=== PATIENT | male | born 1955 | race Caucasian/White ===

== ENCOUNTER → 2016-05-20 | Outpatient (CLI) | payer MEDICARE ==
--- NOTE | 2016-05-20 10:33 | REP ---
CHEST X-RAY: Two views. HISTORY: Polymyalgia rheumatica. Comparison study December 15, 2014. FINDINGS: The lungs are hyperinflated but clear. Pleural angles are sharp. Heart is not enlarged. There is some biapical pleuroparenchymal fibrotic change unchanged from the prior study. There are old healed rib fractures on the right. No other significant bony abnormality is seen. Pulmonary vasculature is not increased. IMPRESSION: No active disease. Signed by Curtis Barfield MD 05/20/2016 10:41 A
== END | disposition home or self-care (01) ==
LOC: M RAD 09:03
PROVIDERS: ATTEND Family Medicine
DX: J18.9 Pneumonia, unspecified organism (principal); R06.2 Wheezing

== ENCOUNTER 2016-05-21 08:45 | Emergency (ER) | payer MEDICARE ==
[2016-05-21] MEDS ORDERED: GLUCAGON FOR INJ 1 MG VIAL (J1610) As Ordered ONE (09:07)
[2016-05-21] MEDS ORDERED: GI COCKTAIL 50ML BTL(HYOSCYAMINE/MAALOX/LIDOCAINE VISCOUS)(1:3:1) As Ordered ONE (09:48)
[2016-05-21 11:16] LABS: BASO % 0.3 % (0.0-1.0); EOS # 0.1 K/mm3 (0.0-0.50); EOS % 0.5 % (0.0-3.0); LARGE UNSTAINED CELL # 0.1 K/mm3 (0.0-0.4); LARGE UNSTAINED CELL % 0.9 % (0.0-4.0); LYMPH # 1.5 K/mm3 (1.5-4.5); LYMPH % 10.4 % (24.0-44.0); MEAN CORPUSCULAR HEMOGLOBIN 34.3 pg (27.0-33.0); MEAN CORPUSCULAR HGB CONC 33.7 g/dl (32.0-36.5); MEAN CORPUSCULAR VOLUME 101.9 fl (80.0-96.0); MONO # 0.5 K/mm3 (0.0-0.8); MONO % 3.8 % (0.0-5.0); NEUTROPHILS # 11.8 K/mm3 (1.8-7.7); NEUTROPHILS % 84.2 % (36.0-66.0); PLATELET COUNT, AUTOMATED 298 k/mm3 (150-450); RED CELL DISTRIBUTION WIDTH 12.4 % (11.5-14.5)
[2016-05-21 11:26] LABS: ANION GAP 9 MEQ/L (8-16); BLOOD UREA NITROGEN 16 MG/DL (7-18); CALCIUM LEVEL 8.5 MG/DL (8.5-10.1); CARBON DIOXIDE LEVEL 27 MEQ/L (21-32); CHLORIDE LEVEL 110 MEQ/L (98-107); CREATININE FOR GFR 0.92 MG/DL (0.70-1.30); GLOMERULAR FILTRATION RATE > 60.0 (>56); GLUCOSE, FASTING 100 MG/DL (70-105); POTASSIUM SERUM 4.1 MEQ/L (3.5-5.1); SODIUM LEVEL 146 MEQ/L (136-145)
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
== END 2016-05-21 13:28 | disposition short-term general hospital (02) ==
LOC: M ED 08:45
DX: T18.128A Food in esophagus causing other injury, initial encounter (principal); X58.XXXA Exposure to other specified factors, initial encounter; Y92.89 Other specified places as the place of occurrence of the external cause; Y93.89 Activity, other specified; Y99.8 Other external cause status; J44.9 Chronic obstructive pulmonary disease, unspecified; F17.210 Nicotine dependence, cigarettes, uncomplicated; Z79.899 Other long term (current) drug therapy; Z79.51 Long term (current) use of inhaled steroids
CPT/HCPCS: 36415; 80048; 85025; 96361; 96374; 99285; J1610

== ENCOUNTER 2020-01-02 21:20 | Emergency (ER) | payer MEDICARE ==
[~2020-01-02] VITALS: Ht 177.8 cm; Wt 61.2 kg
[2020-01-02] MEDS ORDERED: IPRATROPIUM 0.5MG/ALBUTEROL 2.5MG INH SOL UD 3ML (DUONEB) NEB ONE (21:45)
[2020-01-02] MEDS ORDERED: KETOROLAC 30 MG/ML 1ML VIAL IV ONE (21:45)
[2020-01-02 21:47] LABS: BASO # 0.1 10^3/uL (0.0-0.2); BASO % 0.6 % (0.0-1.0); EOS # 0.1 10^3/uL (0.0-0.5); EOS % 0.9 % (0.0-3.0); HEMATOCRIT 43.7 % (42.0-52.0); HEMOGLOBIN 15.2 g/dl (13.5-17.5); LYMPH # 2.3 10^3/uL (1.5-5.0); LYMPH % 19.3 % (24.0-44.0); MEAN CORPUSCULAR HEMOGLOBIN 34.2 pg (27.0-33.0); MEAN CORPUSCULAR HGB CONC 34.8 g/dl (32.0-36.5); MEAN CORPUSCULAR VOLUME 98.4 fl (80.0-96.0); MONO # 0.9 10^3/uL (0.0-0.8); MONO % 7.2 % (0.0-5.0); NEUTROPHILS # 8.6 10^3/uL (1.5-8.5); NEUTROPHILS % 71.6 % (36.0-66.0); PLATELET COUNT, AUTOMATED 327 10^3/uL (150-450); RED BLOOD COUNT 4.44 10^6/uL (4.30-6.10)
[2020-01-02 21:57] LABS: INR 0.91; PROTHROMBIN TIME 12.4 SECONDS (11.8-14.0)
[2020-01-02 21:58] LABS: PARTIAL THROMBOPLASTIN TIME 29.9 SECONDS (25.0-38.4)
[2020-01-02 22:15] LABS: BLOOD UREA NITROGEN 11 MG/DL (7-18); CALCIUM LEVEL 8.6 MG/DL (8.8-10.2); CARBON DIOXIDE LEVEL 26 MEQ/L (21-32); CHLORIDE LEVEL 103 MEQ/L (98-107); CK-MB VALUE MASS < 1.0 NG/ML (<3.6); CPK CREATINE PHOSPHOKINASE 66 U/L (39-308); CREATININE FOR GFR 0.85 MG/DL (0.70-1.30); GLOMERULAR FILTRATION RATE > 60.0 (>49); GLUCOSE, FASTING 94 MG/DL (70-100); MB/CK RELATIVE INDEX 1.52 (< OR =4); POTASSIUM SERUM 3.8 MEQ/L (3.5-5.1); SODIUM LEVEL 136 MEQ/L (136-145); TROPONIN I < 0.02 NG/ML (< 0.10)
--- NOTE | 2020-01-02 22:44 | REPVR ---
PROCEDURE INFORMATION: Exam: XR Chest, 2 Views Exam date and time: 01/02/2020 9:54 PM Age: 64 years old Clinical indication: Other: Cough, left sided chest pain TECHNIQUE: Imaging protocol: XR of the chest Views: 2 views. COMPARISON: CR Chest, 2 view PA, Lat 05/20/2016 9:11 AM FINDINGS: Lungs: 5 cm wedge-shaped area of increased density at the right infrahilar portion of the lung and based on the lateral view possibly involving both the right middle lobe and lower lobe. This is consistent with atelectasis and pneumonia. Follow-up studies would be very important to see that this clears to exclude any possibility of underlying mass lesion or obstructing lesion. There is some prominence of the right hilum which could be secondary to enlarged lymph nodes. There is a 3 cm density in the right infrahilar region that could represent a enlarged lymph node or a oval mass lesion. A CT scan with IV contrast would be very important to evaluate this area. Pleural space: There is no evidence of pneumothorax or pleural effusion. Heart/Mediastinum: The heart is normal in size. There is increased density to the right of the lower trachea/upper mediastinum. This could be the result of enlarged lymph nodes and I would recommend correlation with CT scan for further evaluation. Bones/joints: Old healed rib fracture right 7th rib. IMPRESSION: 1. Soft tissue prominence along the right side of the lower trachea may be the result of enlarged lymph nodes and recommend CT scan for further evaluation of this. This represents a change since 2017. 2. 5 cm wedge-shaped area of increased density right infrahilar region involving the right middle lobe and right lower lobe consistent with an extensive area of pneumonic infiltrate. Follow-up studies would be important to see that this clears and to exclude any possibility of underlying nodule or obstructing lesion. 3. Prominence of the right hilum could be the result of enlarged lymph nodes and evaluation with CT with IV contrast would be helpful. 4. There is a 3 cm density in the right infrahilar region which could represent an enlarged lymph node or a mass lesion. A CT scan with IV contrast would be very helpful to evaluate this area for the possibility of a mass lesion. Electronically signed by: Darryl Bernard On 01/02/2020 22:44:11 PM
[2020-01-02] MEDS ORDERED: ISOVUE-370 76% 100ML VIAL As Ordered ONE (22:59)
--- NOTE | 2020-01-02 23:59 | REPVR ---
PROCEDURE INFORMATION: Exam: CT Angiography Chest With Contrast Exam date and time: 01/02/2020 10:53 PM Age: 64 years old Clinical indication: Left-sided chest pain; Additional info: Left sided pleuritic chest pain, enlarged lymph nodes on cxr TECHNIQUE: Imaging protocol: Computed tomographic angiography of the chest with intravenous contrast. 3D rendering (Not supervised by radiologist): MIP and/or 3D reconstructed images were created by the technologist. Radiation optimization: All CT scans at this facility use at least one of these dose optimization techniques: automated exposure control; mA and/or kV adjustment per patient size (includes targeted exams where dose is matched to clinical indication); or iterative reconstruction. Contrast material: ISO; Contrast volume: 75 ml; Contrast route: INTRAVENOUS (IV); COMPARISON: CR Chest, 2 view PA, Lat 01/02/2020 9:49 PM FINDINGS: Pulmonary arteries: There is opacification of the pulmonary arteries with no evidence pulmonary embolus. Aorta: Normal in size. Veins: There is a 4 cm x 5 cm conglomerate of lymphadenopathy between the superior vena cava and trachea. Lungs: The left lung appears clear. Contiguous with the right hilum and in the midportion of the right lower lobe is a 5 cm round mass lesion which would be suspicious for a primary neoplasm of lung with pneumatoceles and dilated bronchi. Extending from this is stranding infiltrate and nodular infiltrate segments of the right lower lobe and extending posterior. Heart: The heart is normal in size. Mediastinal space: Contiguous with the infrahilar mass is a 6 cm right hilar mass that is multilobulated and extending into the right infrahilar region. This severely narrows the right pulmonary artery including the branches to the middle lobe and the descending right pulmonary artery. There is also severe narrowing of the right mainstem bronchus and the lower lobe bronchi. Lymph nodes: There is a 5 cm x 3 cm conglomerate of lymphadenopathy in the subcarinal location which is contiguous with the right hilar mass. Bones/joints: There is no evidence of bony abnormality. IMPRESSION: 1. Massive amount of lymphadenopathy is probably secondary to malignant lymphadenopathy from primary neoplasm of lung. This could also be the result of a massive changes of lymphoma. 2. The 5 cm mass within the right lower lobe is very suspicious for a primary malignant neoplasm with malignant infiltration, infiltrate and nodularity within segments of the right lower lobe extending posteriorly. 3. Massive subcarinal and right hilar soft tissue density mass extends into bronchi of the right middle lobe and consistent with malignant neoplasm or lymphoma. This encases the vessels and narrows the bronchi. Electronically signed by: Darryl Bernard On 01/02/2020 23:59:09 PM
[2020-01-03] MEDS ORDERED: NAPR-837 PO (00:23)
[2020-01-03 00:47] VITALS: BP 140/77
--- NOTE | 2020-01-07 18:52 | ECGEPIP ---
[facility] - ED Test Date: 2020-01-02 Pat Name: BRAULIO BOLAND Department: Room: - Gender: Male Recruit Instructor: ANIRUDH : 1955 Requested By: ASHLEY Brock Order Number: [id number] Reading MD: Simon Mcdonald Measurements Intervals [place] Rate: 91 P: 69 FL: 164 QRS: 71 QRSD: 94 T: 70 QT: 343 QTc: 422 Interpretive Statements SINUS RHYTHM WITH OCCASIONAL VENTRICULAR PREMATURE COMPLEXES NSTTW CHANGES SEE SCANNED DOWNTIME REPORT
[2020-01-15] MEDS ORDERED: SYMB16INH INH (14:42)
[2020-01-15] MEDS ORDERED: MIRT1TAB16 PO (14:42)
[2020-02-14] MEDS ORDERED: ONDA8TAB8 PO (12:44)
== END 2020-01-03 00:49 | disposition home or self-care (01) ==
LOC: M ED 21:20
DX: R91.8 Other nonspecific abnormal finding of lung field (principal); R07.1 Chest pain on breathing; R06.02 Shortness of breath; J44.9 Chronic obstructive pulmonary disease, unspecified; F17.210 Nicotine dependence, cigarettes, uncomplicated
CPT/HCPCS: 71046; 71275; 80048; 82550; 82553; 84484; 85025; 85610; 85730; 87040; 93005; 93041; 94640; 94760; 96374; 99285; J1885; Q9967

== ENCOUNTER → 2020-01-15 | Outpatient (CLI) | payer MEDICARE ==
[~2020-01-15] MED LIST: MIRT1TAB16 PO; NAPR-837 PO; ONDA8TAB8 PO; SYMB16INH INH
== END ==
LOC: M LABSMTC 13:29
PROVIDERS: ATTEND Anesthesiology
DX: Z01.818 Encounter for other preprocedural examination (principal); Z20.828 Contact with and (suspected) exposure to other viral communicable diseases
CPT/HCPCS: C9803; U0003

== ENCOUNTER 2020-01-20 08:05 | Day surgery (SDC) | payer MEDICARE ==
[~2020-01-20] VITALS: Ht 177.8 cm; Wt 57.6 kg
[~2020-01-20 08:05] MED LIST changes: +ALBUTEROL SULFATE 2.5 MG/0.5 ML INH NEB SOLN INH ONE; +LIDOCAINE 4% INJ 5ML AMP NEB ONE; +LR 1,000 ML IV ONE; -ONDA8TAB8 PO
[2020-01-20] MEDS ORDERED: fentaNYL 100 MCG/2 ML INJECTION (J3010) As Ordered ONE (08:20)
[2020-01-20] MEDS ORDERED: MIDAZOLAM INJ 2MG/2ML VIAL (J2250 PER 1MG) As Ordered ONE (08:20)
[2020-01-20] MEDS ORDERED: propofoL 200 MG/20 ML VIAL As Ordered ONE (08:21)
[2020-01-20] MEDS ORDERED: ROCURONIUM BROMIDE 50 MG/5 ML VIAL As Ordered ONE (08:21)
[2020-01-20] MEDS ORDERED: dexameTHASONE 4 MG/ML 1ML VIAL (J1100 PER 1MG) As Ordered ONE (08:22)
[2020-01-20] MEDS ORDERED: LIDOCAINE 1% MDV 20ML VIAL As Ordered ONE (08:43)
[2020-01-20] MEDS ORDERED: THROMBIN SOLN 20,000 UNITS KIT As Ordered ONE (08:43)
[2020-01-20] MEDS ORDERED: CETACAINE SPRAY 5GM As Ordered ONE (08:44)
[2020-01-20] MEDS ORDERED: EPINEPHrine 1MG/10ML SYRINGE 1.5IN As Ordered ONE (08:44)
[2020-01-20] MEDS ORDERED: THROMBIN SOLN 5,000 UNITS VIAL As Ordered ONE (08:45)
[2020-01-20] MEDS ORDERED: ePHEDrine SULFATE 25 MG/5 ML(5MG/ML) SYRINGE As Ordered ONE (09:15)
[2020-01-20] MEDS ORDERED: ONDANSETRON 4MG/2ML VIAL As Ordered ONE (09:23)
[2020-01-20] MEDS ORDERED: SUGAMMADEX SODIUM 500 MG/5 ML VIAL (BRIDION) As Ordered ONE (09:23)
--- NOTE | 2020-01-20 10:14 | ROOR ---
Patient Name: Mj Morse Procedure Date: 01/20/2020 8:54 AM Date of : 1955 Admit Type: Outpatient Age: 64 Note Status: Finalized Attending MD: Tonja Lee MD Procedure: Bronchoscopy Indications: Right lower lobe mass, Right middle lobe nodule, Mediastinal adenopathy, Paratracheal adenopathy Providers: Tonja Lee MD (Doctor), Ciro Lilly DO, FCCP (1st Assisting Doctor) Referring MD: 1. No Referring Physician 1. No Referring Physician, Admin. (Referring MD) Requesting Physician: Medicines: Lidocaine 4% via nebulizer with Albuterol 2.5 mg, General Anesthesia, Cetacaine topical, Epinephrine 1 mg/10 mL topical 2 mL Complications: No immediate complications. Estimated blood loss: Minimal Procedure: Pre-Anesthesia Assessment: - Prior to the procedure, a History and Physical was performed, and patient medications and allergies were reviewed. The patient's tolerance of previous anesthesia was also reviewed. The risks and benefits of the procedure and the sedation options and risks were discussed with the patient. All questions were answered, and informed consent was obtained. Prior Anticoagulants: The patient has taken no previous anticoagulant or antiplatelet agents. ASA Grade Assessment: II - A patient with mild systemic disease. After reviewing the risks and benefits, the patient was deemed in satisfactory condition to undergo the procedure. The Bronchoscope was introduced through the mouth, via the endotracheal tube (the patient was intubated for the procedure) and advanced to the tracheobronchial tree of both lungs. The procedure was accomplished without difficulty. The patient tolerated the procedure well. Findings: The trachea is of normal caliber. The gamaliel is blunted. The left tracheobronchial tree was examined to at least the first subsegmental level. Bronchial mucosa and anatomy are normal on the left; there was some mucosal pitting and nodularity but no endobronchial lesions and few mucoid secretions on the left. On the right there were some mucoid secretions. Specific locations: The right middle lobe bronchial orifice was completely occluded by mucosal endobronchial lesion. There was a polypoid friable mucosal lesion obstructing the anterior basal segment of the right lower lobe (B8) and also part of the medial basal segment of the right lower lobe. Brushings of a mucosal abnormality were obtained in the right middle lobe with a cytology brush and sent for routine cytology. Endobronchial biopsies of a polypoid lesion were performed in the anterior basal segment of the right lower lobe using a forceps and sent for histopathology examination. An endobronchial ultrasound endoscope was utilized in order to assist with fine needle aspiration in the subcarinal area. Transbronchial needle aspirations of a lymph node were performed in the subcarinal area using an Olympus EBUS-TBNA 21 gauge needle and sent for routine cytology. The procedure was guided by ultrasound. Transbronchial needle aspiration technique was selected because the sampling site was not visible endoscopically. Impression: - Right lower lobe mass - Right middle lobe nodule - Mediastinal adenopathy - Paratracheal adenopathy - Brushings were obtained in RML. - An endobronchial biopsy was performed in RLL. - Endobronchial ultrasound was performed. - A transbronchial needle aspiration was performed. Recommendation: - Follow up with bronchoscopist as previously scheduled. Attending Participation: I personally performed the entire procedure. Tonja Lee MD 01/20/2020 10:13:47 AM Ciro Lilly DO, [facility] Number of Addenda: 0 Note Initiated On: 01/20/2020 8:54 AM
[2020-01-20] MEDS ORDERED: PERCOCET 5MG/325MG TAB PO PRN (10:15)
[2020-01-20] MEDS ORDERED: LR 1,000 ML IV SCH (10:15)
[2020-01-20] MEDS ORDERED: METOCLOPRAMIDE INJ 10MG/2ML VIAL (J2765 PER 1) IV PRN (10:15)
[2020-01-20] MEDS ORDERED: ONDANSETRON 4MG/2ML VIAL IV PRN (10:15)
[2020-01-20] MEDS ORDERED: fentaNYL 100 MCG/2 ML INJECTION (J3010) IV PRN (10:15)
--- NOTE | 2020-01-20 10:34 | REPVR ---
PROCEDURE INFORMATION: Exam: XR Chest, 1 View Exam date and time: 01/20/2020 10:07 AM Age: 64 years old Clinical indication: Condition or disease; Lung condition and disease; Other: S/P bronchoscopy; Additional info: Post op in pacu/ broncho TECHNIQUE: Imaging protocol: XR of the chest Views: 1 view. COMPARISON: CR Chest, 2 view PA, Lat 01/02/2020 9:49 PM FINDINGS: Lungs: COPD and interstitial prominence. Poorly defined right infrahilar density, which can be better evaluated with CT, as clinically indicated. Pleural space: No significant pleural effusion. Heart/Mediastinum: No cardiomegaly. Bones/joints: Old rib fractures. Degenerative change. Soft tissues: Widening of the right paratracheal soft tissues, suspicious for lymphadenopathy. When correlating with the previous study, no significant interval changes are present. IMPRESSION: 1. Poorly defined right infrahilar density, which can be better evaluated with CT, as clinically indicated. 2. Widening of the right paratracheal soft tissues, suspicious for lymphadenopathy. Electronically signed by: Omar Tellez On 01/20/2020 10:34:18 AM
[2020-01-20 11:25] VITALS: BP 140/79
[2020-02-14] MEDS ORDERED: ONDA8TAB8 PO (12:44)
== END 2020-01-20 11:25 | disposition home or self-care (01) ==
LOC: M SDC 08:05
PROVIDERS: ATTEND Internal Medicine Pulmonary Disease
DX: C34.31 Malignant neoplasm of lower lobe, right bronchus or lung (principal); C77.1 Secondary and unspecified malignant neoplasm of intrathoracic lymph nodes; J44.9 Chronic obstructive pulmonary disease, unspecified; F17.218 Nicotine dependence, cigarettes, with other nicotine-induced disorders; Z79.899 Other long term (current) drug therapy; Z79.51 Long term (current) use of inhaled steroids
CPT/HCPCS: 31623; 31625; 31652; 71045; 88104; 88173; 88305; 88342; J1100; J2250; J2405; J3010; S2900

== ENCOUNTER → 2020-02-04 | Outpatient (CLI) | payer MEDICARE ==
[~2020-02-04] MED LIST changes: -ALBUTEROL SULFATE 2.5 MG/0.5 ML INH NEB SOLN INH ONE; -LIDOCAINE 4% INJ 5ML AMP NEB ONE; -LR 1,000 ML IV ONE; +ONDA8TAB8 PO
--- NOTE | 2020-02-10 07:48 | REP ---
PET CT: 02/04/2020 HISTORY: Staging lung carcinoma. COMPARISON: Chest CT study 01/02/20. TECHNIQUE: 49 minutes following the intravenous injection of a 8.49mCi dose of F 18 FDG, 3D PET CT imaging is acquired from the skull base to the proximal thighs. PET CT FINDINGS: Head and neck soft tissues are unremarkable. The known right lower lobe lung mass is hypermetabolic, maximum standard uptake value 13.94. There is some peripheral infiltrate in the right lower lobe with low level hypermetabolic uptake, 3.72. This is most consistent with post- obstructive pneumonitis. There is some discoid atelectasis in the right middle lobe. There is hypermetabolic bulky right hilar subcarinal and paratracheal mediastinal lymph adenopathy. Maximum standard uptake value in the right hilar adenopathy is 22.79. Subcarinal adenopathy displaced maximum standard uptake value of 15.40 and the bulky pre-carinal and right peritracheal adenopathy maximum SUV value is 18.09. No other abnormal pulmonary parenchymal hypermetabolic uptake is seen. No abnormal adrenal uptake is seen. No abnormal uptake is seen in the abdomen or pelvis. IMPRESSION: Findings consistent with bronchogenic malignancy in the right lower lobe with bulky right hilar, subcarinal, pretracheal and paratracheal mediastinal lymphadenopathy. Post obstructive changes suspected in the right lower lobe and right middle lobe. with left adrenal metastasis and left hilar and mediastinal hypermetabolic adenopathy MTDD
== END ==
LOC: M PLARAD 14:40
PROVIDERS: ATTEND Internal Medicine Pulmonary Disease
DX: C34.31 Malignant neoplasm of lower lobe, right bronchus or lung (principal)
CPT/HCPCS: 78815; A9552

== ENCOUNTER → 2020-02-10 | Outpatient (CLI) | payer MEDICARE ==
[~2020-02-10] MED LIST changes: +PROHANCE 279.3MG/ML 15ML VIAL As Ordered ONE
--- NOTE | 2020-02-10 19:44 | REPVR ---
PROCEDURE INFORMATION: Exam: MR Head Without and With Contrast Exam date and time: 02/10/2020 5:59 PM Age: 64 years old Clinical indication: Condition or disease; Cancer; Metastatic or secondary malignancy of brain; Primary cancer: Lung; Additional info: Mal alisia of lower broncus of lung TECHNIQUE: Imaging protocol: MR of the head without and with intravenous contrast. Contrast material: PROHANCE; Contrast volume: 10 ml; Contrast route: INTRAVENOUS (IV); COMPARISON: No relevant prior studies available. FINDINGS: Brain: No restricted diffusion to suggest acute infarction. No acute intracranial hemorrhage. No significant white matter lesions. There are no enhancing lesions in the brain parenchyma or leptomeninges. Cerebral ventricles: No ventriculomegaly. Bones/joints: Unremarkable. Paranasal sinuses: There is a minimal volume of fluid in sphenoid air cells and mild mucoperiosteal thickening.The remainder of the paranasal sinuses appear clear. Mastoid air cells: The middle ear cavities and mastoid air cells are clear. Orbits: The orbits are normal. Soft tissues: Unremarkable. Vasculature: Flow is seen in the major intracerebral arteries. IMPRESSION: 1. No evidence of metastatic disease. 2. No acute cerebral infarction or intracranial hemorrhage. Electronically signed by: Tammy Jonas On 02/10/2020 19:44:36 PM
== END ==
LOC: M RAD 17:12
PROVIDERS: ATTEND Internal Medicine Pulmonary Disease
DX: C34.30 Malignant neoplasm of lower lobe, unspecified bronchus or lung (principal)
CPT/HCPCS: 70553; A9576

== ENCOUNTER → 2020-02-11 | Outpatient (CLI) | payer MEDICARE ==
[~2020-02-11] MED LIST changes: -PROHANCE 279.3MG/ML 15ML VIAL As Ordered ONE
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
== END ==
LOC: M ONCR 08:53
PROVIDERS: ATTEND General Practice
DX: C34.31 Malignant neoplasm of lower lobe, right bronchus or lung (principal)

== ENCOUNTER → 2020-03-23 | Outpatient (RCR) | payer MEDICARE ==
[~2020-03-23] MED LIST changes: +MAGICMW PO; +OXYC1SOL3 PO; +SUCR1ORA PO
== END ==
LOC: M ONCR 02-24 10:23
PROVIDERS: ATTEND General Practice
DX: C34.31 Malignant neoplasm of lower lobe, right bronchus or lung (principal)

== ENCOUNTER 2020-04-14 10:00 | Outpatient (RCR) | payer MEDICARE ==
[~2020-04-14 10:00] MED LIST changes: +OMEP40CA97 PO
[2020-04-14] MEDS ORDERED: LEVO500T3 PO (11:30)
== END 2020-04-23 ==
LOC: M ONCR 10:00
PROVIDERS: ATTEND General Practice
DX: C34.31 Malignant neoplasm of lower lobe, right bronchus or lung (principal)

== ENCOUNTER → 2020-05-13 | Outpatient (CLI) | payer MEDICARE ==
[~2020-05-13] MED LIST changes: +GASTROGRAFIN SOLUTION 30ML (Q9963) As Ordered ONE; +ISOVUE-370 76% 100ML VIAL As Ordered ONE; +LEVO500T3 PO
--- NOTE | 2020-05-13 20:35 | REP ---
INDICATION: RESTAGING OF NSC LUNG CA. COMPARISON: 01/02/2020. TECHNIQUE: CT chest performed following the intravenous administration of 100 cc of Isovue 370. Sagittal and coronal reconstruction images are performed. FINDINGS: Lungs: Biapical parenchymal opacities are stable. On image 36 in the right upper lobe there is a 6 mm ill-defined nodular opacity which probably represents fluid in tiny blebs. At the site of the previous 5 cm right lower lobe mass there is significant improvement with small amount of residual ill-defined soft tissue measuring approximately 2.4 x 1.2 cm. There is a 1 cm area of cavitation at the lateral aspect. This has somewhat spiculated margins. There are mild surrounding interstitial opacities in the right lower lobe. A thin band of opacity extending to the right posterolateral pleural surface may represent fibro atelectatic density. Emphysematous change and bronchiectasis is again noted. There is inspissated material in a few of the posterior right lower lobe bronchioles. No acute abnormalities are seen in the left lung. Mediastinum: Pretracheal adenopathy has significantly improved. Residual soft tissue measures about 2.3 x 2.0 cm. Subcarinal adenopathy has improved, residual soft tissue measures about 2.5 x 1.3 cm. Heather: Right hilar adenopathy has improved, residual soft tissue measures about 1.6 x 1.7 cm. Right lateral infrahilar adenopathy has improved, residual soft tissue measures 2.1 x 1.4 cm. Axilla: No adenopathy. Pleura: No effusion. Heart: Not enlarged. Thoracic aorta: No aneurysm or dissection. Ectasia of the ascending thoracic aorta 4.2 cm. Visualized osseous structures: There are mild degenerative changes of the spine. IMPRESSION: Significant improvement in right lower lobe mass and as well as mediastinal and right hilar adenopathy as discussed in detail above. <Electronically signed by Mata Titus > 05/13/202030
--- NOTE | 2020-05-13 20:43 | REP ---
INDICATION: RESTAGING OF NSC LUNG CA COMPARISON: None. TECHNIQUE: CT Scan of the abdomen and pelvis was performed with intravenous administration of 100 cc of Isovue 370, and oral contrast. FINDINGS: Liver: Normal Gallbladder: Unremarkable. Spleen: Normal. Adrenals: Normal. Pancreas: Normal. Kidneys: There is a subcentimeter cyst in the right kidney. There is no hydronephrosis bilaterally. Small and large bowel: Unremarkable. Free fluid: None. Abdominal aorta: No aneurysm or dissection. Adenopathy: None. Appendix: Not inflamed. Osseous structures: There are degenerative changes of the spine without compression deformity. Pelvis: No mass. IMPRESSION: Essentially negative CT abdomen and pelvis. <Electronically signed by Mata Titus > 05/13/20 [id number]
== END ==
LOC: M RAD 16:44
PROVIDERS: ATTEND Specialist
DX: C34.31 Malignant neoplasm of lower lobe, right bronchus or lung (principal); I77.810 Thoracic aortic ectasia
CPT/HCPCS: 71260; 74177; Q9963; Q9967

== ENCOUNTER → 2020-06-04 | Outpatient (CLI) | payer SELFPAY ==
[~2020-06-04] MED LIST changes: -GASTROGRAFIN SOLUTION 30ML (Q9963) As Ordered ONE; -ISOVUE-370 76% 100ML VIAL As Ordered ONE
== END ==
LOC: M LABSMTC 10:03
PROVIDERS: ATTEND Pediatrics
DX: Z20.822 Contact with and (suspected) exposure to COVID-19 (principal)

== ENCOUNTER → 2020-06-17 | Outpatient (CLI) | payer SELFPAY | LOC: M LABSMTC 09:33 | PROVIDERS: ATTEND Pediatrics | DX: Z20.822 Contact with and (suspected) exposure to COVID-19 (principal) ==

== ENCOUNTER 2020-07-25 09:22 | Inpatient (IN) | payer MEDICARE ==
[~2020-07-25] VITALS: Ht 177.8 cm; Wt 57.6 kg
[2020-07-25] MEDS: NICOTINE 14 MG/24 HR TRANSDERMAL TD SCH (09:00)
[~2020-07-25 09:22] MED LIST changes: +AZIT-12 PO; +COQ-100C5 PO
[2020-07-25] MEDS ORDERED: MORPHINE 2 MG/ML 1ML VIAL (J2270) IV PRN (09:45)
[2020-07-25] MEDS ORDERED: ONDANSETRON 4MG/2ML VIAL IV ONE (09:45)
[2020-07-25] MEDS ORDERED: IPRATROPIUM 0.5MG/ALBUTEROL 2.5MG INH SOL UD 3ML (DUONEB) NEB ONE (09:45)
[2020-07-25] MEDS ORDERED: ALBUTEROL SULFATE 2.5 MG/0.5 ML INH NEB SOLN INH ONE (09:45)
[2020-07-25 10:16] LABS: ABG HCO3 19.9 MEQ/L (22.0-26.0); ABG O2 SATURATION 98.8 % (95.0-99.0); ABG PARTIAL PRESSURE O2 110.8 mmHg (75.0-100.0); ABG TOTAL CO2 20.8 MEQ/L (23.0-31.0)
[2020-07-25 10:16] LABS: BASO % 0.2 % (0.0-1.0); EOS % 0.1 % (0.0-3.0); HEMATOCRIT 40.6 % (42.0-52.0); HEMOGLOBIN 13.4 g/dl (13.5-17.5); LYMPH # 0.3 10^3/uL (1.5-5.0); LYMPH % 2.6 % (24.0-44.0); MEAN CORPUSCULAR HEMOGLOBIN 34.4 pg (27.0-33.0); MEAN CORPUSCULAR VOLUME 104.4 fl (80.0-96.0); MONO # 1.1 10^3/uL (0.0-0.8); MONO % 8.4 % (2.0-8.0); NEUTROPHILS # 11.2 10^3/uL (1.5-8.5); NEUTROPHILS % 88.2 % (36.0-66.0); PLATELET COUNT, AUTOMATED 285 10^3/uL (150-450); RED BLOOD COUNT 3.89 10^6/uL (4.30-6.10); WHITE BLOOD COUNT 12.7 10^3/uL (4.0-10.0)
[2020-07-25] MEDS ORDERED: methylPREDNISolone 40MG 1ML VIAL IV ONE (10:25)
[2020-07-25 10:26] LABS: INR 1.08; PROTHROMBIN TIME 14.2 SECONDS (12.5-14.3)
[2020-07-25 10:27] LABS: PARTIAL THROMBOPLASTIN TIME 36.9 SECONDS (24.2-38.5)
--- NOTE | 2020-07-25 10:35 | REP ---
INDICATION: CHEST PAIN. COMPARISON: PA and lateral chest dated 01/02/2020 and portable chest dated 01/20/2020. TECHNIQUE: Portable AP view of the chest with the patient upright. FINDINGS: There is diffuse interstitial coarsening throughout the right lung as a change. There is a focal increased density inferiorly in the right lung that was also present previously. The left lung is clear. No pleural effusion. Cardiac size is normal. The juany, mediastinum, and skeletal structures are unremarkable. IMPRESSION: Diffusely thickened interstitium throughout the right lung. Focal increased density inferiorly in the right lung similar to the prior studies. <Electronically signed by Mata Dailey > 07/25/20 [id number]
[2020-07-25] MEDS ORDERED: LevoFLOXacin IV 750 MG in IV 1 EA IV ONE (10:45)
[2020-07-25 10:53] LABS: ALBUMIN 3.1 GM/DL (3.2-5.2); BILIRUBIN,DIRECT 0.2 MG/DL (0.0-0.2); BILIRUBIN,TOTAL 0.6 MG/DL (0.2-1.0); FREE T4 1.27 NG/DL (0.76-1.46); THYROID STIMULATING HORMONE 1.27 uIU/ML (0.358-3.740); TOTAL PROTEIN 7.2 GM/DL (6.4-8.2)
[2020-07-25] MEDS ORDERED: ISOVUE-370 76% 100ML VIAL As Ordered ONE (11:14)
[2020-07-25] MEDS ORDERED: ACETAMINOPHEN TAB 650MG DOSE (2X325MG) PO PRN (11:50)
[2020-07-25] MEDS ORDERED: IBUPROFEN 600MG TAB PO PRN (11:50)
[2020-07-25] MEDS ORDERED: IPRATROPIUM 0.5MG/ALBUTEROL 2.5MG INH SOL UD 3ML (DUONEB) INH PRN (11:50)
--- NOTE | 2020-07-25 12:19 | REP ---
INDICATION: abnormal cxr ro pe ro pneum. COMPARISON: Chest CT with IV contrast dated 05/13/2019. TECHNIQUE: Chest CT with IV contrast, CT angiography. FINDINGS: There are no emboli in the pulmonary trunk or central pulmonary arteries. However, there is a right hilar mass/adenopathy that has increased in size from the prior study. On the current study there is no flow into the right lower lobe pulmonary artery as a change from the prior study. This could be from intraluminal thrombus, external compression from the hilar mass or combination. No other pulmonary artery emboli or occlusions are identified. There is a large interstitial and alveolar infiltrate in the right lower lobe, and moderate right pleural effusion as a definite interval changes. The left lung is clear. There is chronic stable scarring in the lung apices bilaterally, unchanged. There is increased radiodensity and "fullness" in the subcarinal mediastinum as an interval change. This is nonspecific and could represent neoplasm, inflammation or postradiation change. The thoracic aorta is unremarkable. Cardiac size is normal. There is no pericardial effusion. The visualized upper abdominal contents are unremarkable. There is no adrenal mass. IMPRESSION: There is no vascular flow in the right lower lobe pulmonary artery. There is a right infrahilar mass/adenopathy that has increased size. There is a large right lower lobe infiltrate and moderate right pleural effusion. <Electronically signed by Mata Dailey > 07/25/20 [id number]
[2020-07-25] MEDS ORDERED: OMEP-221 PO (12:29)
[2020-07-25] MEDS ORDERED: THERTAB21 PO (12:29)
[2020-07-25] MEDS ORDERED: MIRT-60 PO (12:29)
[2020-07-25 13:10] VITALS: BP 132/80
[2020-07-25] MEDS ORDERED: SUCRALFATE SUSP 1GM/10ML UD PO PRN (13:40)
[2020-07-25 14:00] VITALS: BP 129/80
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
[2020-07-25] MEDS: guaiFENesin ER 600 MG TAB PO SCH ×2 (14:56→20:47)
[2020-07-25] MEDS: OMEPRAZOLE 20 MG CAP PO SCH (15:09)
[2020-07-25] MEDS: MULTIVITAMINS/MINERALS THERAP 1 TAB PO SCH (15:09)
--- NOTE | 2020-07-25 19:09 | ECGEPIP ---
[facility] - ED Test Date: 2020-07-25 Pat Name: BRAULIO BOLAND Department: Room: [place] [address] Gender: Male Manager Secondary: CUATE : 1955 Requested By: Juma Morales Order Number: [id number] Reading MD: Juma Morales Measurements Intervals [place] Rate: 101 P: 73 KS: 142 QRS: 68 QRSD: 84 T: 64 QT: 346 QTc: 448 Interpretive Statements Sinus tachycardia Nonspecific ST T wave changes Delayed R wave progression cw 01/02/[address] T wave changes Electronically Signed on 07-25-2020 19:09:30 EDT by Juma Morales
[2020-07-25] MEDS: SYMBICORT 160/4.5MCG INHALER 6GM INH SCH (20:26)
[2020-07-25] MEDS: MIRTAZAPINE 15 MG TAB PO SCH (20:48)
[2020-07-25] MEDS: ENOXAPARIN 40MG/0.4ML SYRINGE (J1650 PER 10MG) SC SCH (20:48)
[2020-07-25 22:00] VITALS: BP 125/80
[2020-07-26 06:00] VITALS: BP 123/80
[2020-07-26 06:23] LABS: HEMATOCRIT 41.3 % (42.0-52.0); HEMOGLOBIN 13.8 g/dl (13.5-17.5); MEAN CORPUSCULAR HEMOGLOBIN 34.8 pg (27.0-33.0); MEAN CORPUSCULAR HGB CONC 33.4 g/dl (32.0-36.5); MEAN CORPUSCULAR VOLUME 104.3 fl (80.0-96.0); PLATELET COUNT, AUTOMATED 284 10^3/uL (150-450); RED BLOOD COUNT 3.96 10^6/uL (4.30-6.10); WHITE BLOOD COUNT 15.6 10^3/uL (4.0-10.0)
[2020-07-26 06:44] LABS: BLOOD UREA NITROGEN 12 MG/DL (7-18); CARBON DIOXIDE LEVEL 28 MEQ/L (21-32); CHLORIDE LEVEL 105 MEQ/L (98-107); CREATININE FOR GFR 0.78 MG/DL (0.70-1.30); GLOMERULAR FILTRATION RATE > 60.0 (>49); GLUCOSE, FASTING 184 MG/DL (70-100); POTASSIUM SERUM 4.7 MEQ/L (3.5-5.1); SODIUM LEVEL 138 MEQ/L (136-145)
[2020-07-26] MEDS: SYMBICORT 160/4.5MCG INHALER 6GM INH SCH ×2 (07:30→20:32)
[2020-07-26] MEDS: NICOTINE 14 MG/24 HR TRANSDERMAL TD SCH (09:36)
[2020-07-26] MEDS: MULTIVITAMINS/MINERALS THERAP 1 TAB PO SCH (09:37)
[2020-07-26] MEDS: guaiFENesin ER 600 MG TAB PO SCH ×2 (09:37→20:09)
[2020-07-26] MEDS: OMEPRAZOLE 20 MG CAP PO SCH (09:37)
[2020-07-26] MEDS ORDERED: LevoFLOXacin IV 750 MG in IV 1 EA IV SCH (11:00)
[2020-07-26 14:00] VITALS: BP 124/80
--- NOTE | 2020-07-26 16:22 | IPNPDOC ---
Text Note Date of Service The patient was seen on 07/26/20. NOTE SUBJECTIVE Patient reports that his pain is significantly improved, as a matter fact he is feeling quite well today with only a mild aching in the region of his right lower ribs. History of his breath has also improved, he has been weaned off of oxygen and is saturating well on room air. PHYSICAL EXAMINATION: General: Awake, alert, he is not in any acute distress at this time. Overall he is quite thin, almost cachectic. HEENT: Head normocephalic atraumatic, conjunctiva are pink, sclera are nonicteric, buccal mucosa is pink and moist with no lesions in the oropharynx. Hearing is grossly intact to conversation. Respiratory: Once again he does have diminished lung sounds at the right base, with crackles on the mid right side. Remainder of the lung majano are clear. Cardiovascular: Regular rate and rhythm, with no rubs, gallops, or murmur. Abdomen: Soft, nontender, nondistended, no hepatosplenomegaly appreciated. Bowel sounds present. Extremities: 2+ pulses in the radial and dorsalis pedis bilaterally. ASSESSMENT/PLAN: Postobstructive pneumonia secondary to stage IIIB non-small cell lung carcinoma Productive cough - WBC increased (no administration of steroids) - No fever though - Levofloxacin 750 mg IV every 24 hours -Guaifenesin 1200 mg by mouth twice a day -DuoNeb every 2 hours when necessary wheezing -Encourage use of incentive spirometry and Acapella -Patient has now been weaned off of oxygen - Continue home dose of Symbicort -Blood cultures 24 hr negative -Sputum culture and Gram stain still pending - Respiratory panel negative - Procalcitonin still pending -Pain control with alternating Tylenol and ibuprofen doses at this time Compression versus obstruction of right lower lobe pulmonary artery, likely due to increased size of mass - No acute interventions that are required at this time. - We should communicate the changes noted on CT scan to his medical oncologist and radiation oncologist on Monday. - Since there are no other pulmonary emboli, no need to start therapeutic an ticoagulation at this time. Radiation esophagitis -Continue home dose of omeprazole and Carafate on an as-needed basis Anxiety Difficulty sleeping/insomnia -Continue home dose of Remeron DVT prophylaxis -Lovenox Disposition: If patient continues to remain stable for the next 24 hours, likely anticipate discharge tomorrow. VS,Fishbone, I+O VS, Fishbone, I+O Laboratory Tests 07/25/20 09:43 07/26/20 05:43 Vital Signs Date Time Temp Pulse Resp B/P (MAP) Pulse Ox O2 Delivery O2 Flow Rate FiO2 07/26/20 07:31 15 07/26/20 06:00 97.4 95 123/80 (94) 96 Room Air 07/25/20 21:00 2.0 I&O- Last 24 Hours up to 6 AM 07/26/20 06:00 Intake Total 1580 ml Output Total 700 ml Balance 880 ml MARIA ESTHER JACQUES DO Jul 26, 2020 09:13
[2020-07-26] MEDS: MIRTAZAPINE 15 MG TAB PO SCH (20:09)
[2020-07-26] MEDS: ENOXAPARIN 40MG/0.4ML SYRINGE (J1650 PER 10MG) SC SCH (20:10)
[2020-07-26 22:00] VITALS: BP 126/81
[2020-07-27 06:00] VITALS: BP 124/84
[2020-07-27 06:06] LABS: HEMATOCRIT 38.6 % (42.0-52.0); HEMOGLOBIN 12.8 g/dl (13.5-17.5); MEAN CORPUSCULAR HEMOGLOBIN 34.3 pg (27.0-33.0); MEAN CORPUSCULAR HGB CONC 33.2 g/dl (32.0-36.5); MEAN CORPUSCULAR VOLUME 103.5 fl (80.0-96.0); PLATELET COUNT, AUTOMATED 263 10^3/uL (150-450); RED BLOOD COUNT 3.73 10^6/uL (4.30-6.10); WHITE BLOOD COUNT 9.4 10^3/uL (4.0-10.0)
[2020-07-27] MEDS: SYMBICORT 160/4.5MCG INHALER 6GM INH SCH (07:38)
[2020-07-27] MEDS ORDERED: LevoFLOXacin 750 MG TABLET PO ONE (08:20)
[2020-07-27] MEDS ORDERED: LEVO750T13 PO (08:37)
[2020-07-27] MEDS: guaiFENesin ER 600 MG TAB PO SCH (08:52)
[2020-07-27] MEDS: MULTIVITAMINS/MINERALS THERAP 1 TAB PO SCH (08:52)
[2020-07-27] MEDS: NICOTINE 14 MG/24 HR TRANSDERMAL TD SCH (08:52)
[2020-07-27] MEDS: OMEPRAZOLE 20 MG CAP PO SCH (08:52)
[2020-07-27] MEDS ORDERED: PRED5TA PO (13:51)
[2020-07-27] MEDS ORDERED: HYDR-4433 PO (13:54)
--- NOTE | 2020-07-27 19:15 | DS.PDOC ---
Discharge Summary General Date of Admission Jul 25, 2020 at 11:50 Date of Discharge 07/27/2020 Discharge Summary PRIMARY CARE PHYSICIAN: Dr. Bhavani Sellers MD ATTENDING AT TIME OF DISCHARGE: Dr. Maria Esther Jacques, DISCHARGE DIAGNOS(E)S: Postobstructive pneumonia secondary to stage IIIB non-small cell lung carcinoma Productive cough Compression versus obstruction of right lower lobe pulmonary artery, likely due to increased size of mass Radiation esophagitis Anxiety Difficulty sleeping/insomnia Emphysema HPI & HOSPITAL COURSE: Patient presented to the ER after approximately 5 days of having pain in the right lower chest wall. Upon arrival to the ED he had a confirmed right lower lobe pneumonia which is just distal to his known carcinoma mass, therefore it is suspected that this is a postobstructive pneumonia. CT angiogram of the chest was performed to rule out PE, and it turns out that "there is no flow in the right lower pulmonary artery which is a change from his prior study, this could be intraluminal thrombus versus external compression from the hilar mass or combination". He has been told in the past that his tumor is inoperable. His pneumonia was treated with levofloxacin 750 mg every 24 hours, and is switched from IV to PO today upon discharge. He was on oxygen upon arrival to the ED, but was weaned off of this fairly quickly during the first night. He does appear stable for discharge at this time, and will be sent home on antibiotics. PHYSICAL EXAMINATION ON DISCHARGE: GENERAL: Awake, alert, oriented 3. CARDIOVASCULAR EXAMINATION: Regular rate and rhythm, with no rubs, gallops, or murmur. RESPIRATORY EXAMINATION: Crackles noted in the right lower lung majano, but otherwise remainder of his lung majano are clear. ABDOMINAL EXAMINATION: Soft, nontender, nondistended. Bowel sounds present. EXTREMITIES: No clubbing or edema noted. 2+ pulses in the radial bilaterally. DISPOSITION: Home DISCHARGE INSTRUCTIONS: He does have an appointment with a walker cancel center this afternoon, it is recommended that he keep that appointment. It is also recommended that he follow-up with his primary care provider within the next 1-2 weeks. Activity as tolerated. Diet as tolerated. If symptoms return, or if you experience worsening of your symptoms, please call your doctor or return to the emergency department. ITEMS THAT NEED OUTPATIENT FOLLOWUP: Recommend that he follow-up with his oncologist regarding the increased size of his lung mass and its compression on the pulmonary artery. Vital Signs/I&Os Vital Signs Date Time Temp Pulse Resp B/P (MAP) Pulse Ox O2 Delivery O2 Flow Rate FiO2 07/27/20 07:38 16 07/27/20 06:00 97.4 108 124/84 (97) 92 Room Air 07/25/20 21:00 2.0 I&O- Last 24 Hours up to 6 AM 07/27/20 06:00 Intake Total 1700 ml Output Total 2125 ml Balance -425 ml Laboratory Data Labs 24H Laboratory Tests 2 07/27/20 05:51: Nucleated Red Blood Cells % (auto) 0.0 CBC/BMP Laboratory Tests 07/27/20 05:51 Microbiology Microbiology 07/26/20 Gram Stain - Final, Complete 07/26/20 Sputum Culture - Final, Complete 07/25/20 Respiratory Virus Panel (PCR) ([facility]) - Final, Complete 07/25/20 Blood Culture - Preliminary, Resulted No Growth after 48 hours. All Specime... 07/25/20 Blood Culture - Preliminary, Resulted No Growth after 48 hours. All Specime... Discharge Medications Scheduled Budesonide/Formoterol (Symbicort 160-4.5 Mcg Inhaler) 6 Gm Hfa.aer.ad, 2 PUFF INH BID, (Reported) Levofloxacin (Levofloxacin) 750 Mg Tablet, 750 MG PO DAILY Mirtazapine (Remeron) 30 Mg Tablet, 30 MG PO QHS, (Reported) Multivit,Calc,Mins/Iron/Folic (Thera-M Tablet) 1 Each Tablet, 1 TAB PO DAILY, (Reported) Prednisone (Prednisone) 5 Mg Tablet, 5 MG PO DAILY Ubidecarenone (Coq-10) 100 Mg Capsule, 100 MG PO DAILY, (Reported) Scheduled PRN Hydrocodone/Acetaminophen (Hydrocodone-Acetamin 10-300 mg) 1 Each Tablet, 1 TAB PO QIDP PRN for PAIN OR DYSPNEA Omeprazole (Omeprazole) 40 Mg Capsule.dr, 40 MG PO DAILY PRN for HEARTBURN/INDIGESTION, (Reported) Allergies Coded Allergies: No Known Allergies (Unverified , 01/02/20) MARIA ESTHER JACQUES DO Jul 27, 2020 19:15
== END 2020-07-27 11:33 | disposition home or self-care (01) | DRG 194 ==
LOC: M ED 09:22 → M ED INP 11:50 → ENRESERV 12:18 → M MSPAV 13:03
PROVIDERS: ADMIT Neuromusculoskeletal Medicine & OMM; ATTEND Neuromusculoskeletal Medicine & OMM
DX: J18.9 Pneumonia, unspecified organism (principal); C34.31 Malignant neoplasm of lower lobe, right bronchus or lung; F41.9 Anxiety disorder, unspecified; G47.00 Insomnia, unspecified; F17.210 Nicotine dependence, cigarettes, uncomplicated; J43.9 Emphysema, unspecified; K20.80 Other esophagitis without bleeding; Z79.899 Other long term (current) drug therapy

== ENCOUNTER → 2020-08-14 | Outpatient (CLI) | payer MEDICARE ==
[~2020-08-14] MED LIST changes: +HYDR-4433 PO; +LEVO750T13 PO; +MIRT-60 PO; +OMEP-221 PO; +PRED5TA PO; +THERTAB21 PO
--- NOTE | 2020-08-14 08:01 | REP ---
INDICATION: PNEUMONIA COMPARISON: 07/25/2000 TECHNIQUE: PA and lateral. FINDINGS: Mediastinum and cardiac silhouette are within normal limits and stable. Left hemithorax and right upper lung zone appear relatively clear. There is continued right lower lobe opacities suggesting infiltrates and small pleural effusion. No pneumothorax. Skeletal structures intact. IMPRESSION: Continued right lower lobe infiltrate and small pleural effusion. <Electronically signed by Lukasz Lemons > 08/14/20 [id number]
== END ==
LOC: M RAD 07:00
PROVIDERS: ATTEND Family Medicine
DX: J18.9 Pneumonia, unspecified organism (principal)

== ENCOUNTER → 2020-08-28 | Outpatient (REF) | payer MEDICARE, OTHER ==
[~2020-08-28] MED LIST changes: +ALBU83IN INH; +CIPR500T39 PO; +HYDR5LIQ2 PO; +PRED20TA PO; +QC A650T3 PO; +SODI1TAB12 PO; +SPIR12.9 INH; +SUCR1ORA2 PO
== END ==
LOC: M LAB REF 12:39
PROVIDERS: ATTEND Internal Medicine Pulmonary Disease
DX: J44.9 Chronic obstructive pulmonary disease, unspecified (principal)

== ENCOUNTER 2020-08-29 20:44 | Inpatient (IN) | payer MEDICARE, OTHER ==
[2020-08-29] VITALS (9 sets, daily range): BP systolic 98–119; BP diastolic 70–86
[~2020-08-29] VITALS: Ht 177.8 cm; Wt 60.1 kg
[2020-08-29] MEDS: SYMBICORT 160/4.5MCG INHALER 6GM INH SCH (20:00)
[~2020-08-29 20:44] MED LIST changes: -ALBU83IN INH; -CIPR500T39 PO; -HYDR5LIQ2 PO; -PRED20TA PO; -QC A650T3 PO; -SPIR12.9 INH; -SUCR1ORA2 PO
[2020-08-29] MEDS ORDERED: CHLORHEXIDINE GLUCONATE 0.12 % 15ML UDC (PERIDEX ORAL RINSE) MT SCH (21:00)
[2020-08-29] MEDS ORDERED: IPRATROPIUM 0.5MG/ALBUTEROL 2.5MG INH SOL UD 3ML (DUONEB) NEB ONE (21:20)
[2020-08-29] MEDS ORDERED: methylPREDNISolone 125MG 2ML VIAL IV ONE (21:20)
[2020-08-29] MEDS ORDERED: MORPHINE 4 MG/ML 1ML VIAL/SYRINGE (J2270) IV PRN (21:20)
[2020-08-29 21:37] LABS: HEMATOCRIT 39.2 % (42.0-52.0); HEMOGLOBIN 13.3 g/dl (13.5-17.5); MEAN CORPUSCULAR HGB CONC 33.9 g/dl (32.0-36.5); MEAN CORPUSCULAR VOLUME 94.2 fl (80.0-96.0); PLATELET COUNT, AUTOMATED 379 10^3/uL (150-450); RED BLOOD COUNT 4.16 10^6/uL (4.30-6.10)
[2020-08-29 21:57] LABS: LYMPHOCYTES 1 % (16-44); MONOCYTES 8 % (0-5); NEUTROPHILS 85 % (28-66); PLATELET ESTIMATE NORMAL (NORMAL); POLYCHROMASIA 1+
[2020-08-29 22:14] LABS: RSV AMPLIFICATION NEGATIVE (NEGATIVE)
[2020-08-29 22:14] LABS: ALBUMIN 1.9 GM/DL (3.2-5.2); ALT/SGPT 42 U/L (12-78); BILIRUBIN,DIRECT 0.3 MG/DL (0.0-0.2); BILIRUBIN,TOTAL 0.6 MG/DL (0.2-1.0); BLOOD UREA NITROGEN 27 MG/DL (7-18); CALCIUM LEVEL 8.5 MG/DL (8.8-10.2); CARBON DIOXIDE LEVEL 22 MEQ/L (21-32); CHLORIDE LEVEL 94 MEQ/L (98-107); CK-MB VALUE MASS < 1.0 NG/ML (<3.6); CPK CREATINE PHOSPHOKINASE 22 U/L (39-308); GLOMERULAR FILTRATION RATE > 60.0 (>49); GLUCOSE, FASTING 175 MG/DL (70-100); MB/CK RELATIVE INDEX 4.55 (< OR =4); NT-PRO BNP 921 PG/ML (<125); POTASSIUM SERUM 4.7 MEQ/L (3.5-5.1); SODIUM LEVEL 129 MEQ/L (136-145); THYROID STIMULATING HORMONE 0.411 uIU/ML (0.358-3.740); THYROXINE (T4) 9.4 UG/DL (4.5-12.0); TOTAL PROTEIN 6.3 GM/DL (6.4-8.2); TROPONIN I 0.02 NG/ML (< 0.10)
[2020-08-29] MEDS ORDERED: flumazeniL 0.5 MG/5 ML VIAL As Ordered ONE (22:36)
[2020-08-29] MEDS ORDERED: LIDOCAINE 1% MDV 20ML VIAL As Ordered ONE (22:37)
[2020-08-29] MEDS ORDERED: MIDAZOLAM INJ 2MG/2ML VIAL (J2250 PER 1MG) As Ordered ONE (22:37)
--- NOTE | 2020-08-29 22:46 | REPVR ---
PROCEDURE INFORMATION: Exam: XR Abdomen Exam date and time: 08/29/20 (10:16pm) Age: 65 years old Clinical indication: SOB. History of NSC lung cancer. TECHNIQUE: Imaging protocol: XR of the abdomen Views: Frontal supine view of the abdomen. 1 View. COMPARISON: CT ABDOMEN PELVIS of 05/13/20 FINDINGS: Portable supine views of the abdomen and pelvis are provided. The bowel gas pattern is nonspecific and non-obstructed. Moderate amount of fecal matter in the colon. No obvious free air. No abnormal mass. IMPRESSION: No acute findings. Perhaps an element of constipation. Clinical correlation is needed. No definite bowel obstruction. Electronically signed by: Estephanie Aiken On 08/29/2020 22:45:41 PM
--- NOTE | 2020-08-29 22:51 | REPVR ---
PROCEDURE INFORMATION: Exam: XR Chest Exam date and time: 08/29/20 (10:13pm) Age: 65 years old Clinical indication: SOB TECHNIQUE: Imaging protocol: Portable upright CXR Views: 1 view COMPARISON: Chest films of 08/14/20 FINDINGS: Comparison is made with chest films done on 08/14/20 (done 2 weeks ago). A right-sided pneumothorax is now seen, perhaps 40% in volume. A small right basilar pneumothorax space may also be present. Compressed right lung is noted medially. Prominent coarse interstitial disease in the left infrahilar area. The left upper lung remains clear. A small right pleural effusion may be present. Normal heart size. IMPRESSION: Interval development of a right pneumothorax (perhaps 40% in volume). Compressed right lung is seen medially and at the right lung base. Coarse interstitial disease in the left infrahilar region. A small right pleural effusion may be present. Electronically signed by: Estephanie Aikne On 08/29/2020 22:51:31 PM
[2020-08-29] MEDS ORDERED: PRED20TA PO (23:02)
[2020-08-29] MEDS ORDERED: HYDR5LIQ2 PO (23:02)
[2020-08-29] MEDS ORDERED: CIPR500T39 PO (23:06)
[2020-08-29] MEDS ORDERED: SPIR12.9 INH (23:06)
[2020-08-29] MEDS ORDERED: SUCR1ORA2 PO (23:06)
[2020-08-29] MEDS ORDERED: ALBU83IN INH (23:06)
[2020-08-29] MEDS ORDERED: QC A650T3 PO (23:07)
[2020-08-29] MEDS ORDERED: MIDAZOLAM 5MG/ML 1ML VIAL (J2250 PER 1MG) IM ONE (23:25)
[2020-08-29] MEDS ORDERED: NS 1,000 ML IV ONE (23:25)
[2020-08-29] MEDS ORDERED: MIDAZOLAM 5MG/ML 1ML VIAL (J2250 PER 1MG) IV ONE (23:35)
[2020-08-30] VITALS (29 sets, daily range): BP systolic 87–123; BP diastolic 62–86
[2020-08-30] MEDS: PIPERACILLIN/TAZOBACTAM SOD 3.375 GM in D5W MINI-BAG PLUS 50 ML IV SCH ×5 (00:13→23:54)
[2020-08-30] MEDS ORDERED: ACETAMINOPHEN TAB 650MG DOSE (2X325MG) PO PRN (00:15)
[2020-08-30] MEDS ORDERED: ONDANSETRON 4MG/2ML VIAL IV PRN (00:15)
[2020-08-30] MEDS ORDERED: BISACODYL 10 MG SUPP PR PRN (00:15)
[2020-08-30 00:37] LABS: ABG BASE EXCESS -1.6 (-2.0-2.0); ABG O2 SATURATION 96.1 % (95.0-99.0); ABG PARTIAL PRESSURE CO2 38.6 mmHg (35.0-45.0); ABG PARTIAL PRESSURE O2 83.2 mmHg (75.0-100.0); ABG STANDARD HCO3 23.1 MEQ/L (22.0-26.0); ABG TOTAL CO2 24.2 MEQ/L (23.0-31.0); ABG pH (ARTERIAL) 7.393 UNITS (7.350-7.450)
[2020-08-30] MEDS: MIRTAZAPINE 15 MG TAB PO SCH ×2 (00:54→21:01)
[2020-08-30 00:58] LABS: PH BODY FLUID 7.154 UNITS (NOT ESTABLISHED); SOURCE, BODY FLUID pH PLEURAL
[2020-08-30] MEDS ORDERED: VANCOMYCIN HCL 1,000 MG, VIAL MATE ADAPTER 1 EACH in NS 250 ML IV ONE (01:00)
--- NOTE | 2020-08-30 01:03 | REPVR ---
PROCEDURE INFORMATION: Exam: XR Chest Exam date and time: 08/29/2020 12:24 AM Age: 65 years old Clinical indication: Other: Chest tube TECHNIQUE: Imaging protocol: XR of the chest. Views: 1 view. COMPARISON: CR Chest, 1 view 08/29/2020 10:06 PM FINDINGS: Tubes, catheters and devices: Right-sided pleural catheter in place. Lungs: Diffuse right lung infiltrate. Hazy infiltrate in left lower lobe. Pleural spaces: Right pneumothorax. Approximately 10%. No left pneumothorax. Heart/Mediastinum: Unremarkable. No cardiomegaly. Mediastinum is not shifted. Bones/joints: Unremarkable. IMPRESSION: 1. Right pneumothorax. Decreased from prior. 2. Bilateral infiltrates, right greater than left. No change from prior. 3. Right-sided pleural catheter in place. Electronically signed by: Marino Butler On 08/30/2020 01:02:41 AM
[2020-08-30 01:08] LABS: APPEARANCE, BODY FLUID TURBID (CLEAR); PLEURAL FL COLOR BROWN (COLORLESS); SOURCE, BODY FLUID PLEURAL
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
[2020-08-30 01:40] LABS: AMYLASE, BODY FLUID 47 U/L (NOT ESTABLISHED); LDH, BODY FLUID 13060 U/L (NOT ESTABLISHED); SOURCE, BODY FLUID AMYLASE PLEURAL; SOURCE, BODY FLUID GLUCOSE PLEURAL; SOURCE, BODY FLUID LDH PLEURAL; SOURCE, BODY FLUID TOT PROTEIN PLEURAL; TOTAL PROTEIN, BODY FLUID 3.1 G/DL (NOT ESTABLISHED)
[2020-08-30] MEDS: KCL 20MEQ IN D5/NS 1000ML 1,000 ML IV SCH ×2 (02:36→21:14)
[2020-08-30] MEDS: DOCUSATE SODIUM 100MG CAPSULE PO SCH ×3 (02:36→21:00)
[2020-08-30] MEDS: SUCRALFATE SUSP 1GM/10ML UD PO SCH ×5 (02:36→21:01)
[2020-08-30] MEDS: SODIUM CHLORIDE 1 GM TAB PO SCH ×3 (02:36→21:00)
[2020-08-30] MEDS: KETOROLAC 30 MG/ML 1ML VIAL IV SCH ×5 (02:36→23:54)
[2020-08-30] MEDS: NORCO, ANEXSIA 5/325MG TABLET (HYDROcodone/ACETAMINOPHEN) PO PRN (02:53)
[2020-08-30] MEDS ORDERED: methylPREDNISolone 125MG 2ML VIAL IV SCH (04:00)
[2020-08-30 04:38] LABS: HEMATOCRIT 34.2 % (42.0-52.0); HEMOGLOBIN 11.6 g/dl (13.5-17.5); MEAN CORPUSCULAR HEMOGLOBIN 32.4 pg (27.0-33.0); MEAN CORPUSCULAR HGB CONC 33.9 g/dl (32.0-36.5); MEAN CORPUSCULAR VOLUME 95.5 fl (80.0-96.0); RED BLOOD COUNT 3.58 10^6/uL (4.30-6.10); WHITE BLOOD COUNT 7.3 10^3/uL (4.0-10.0)
[2020-08-30 04:39] LABS: PLATELET COUNT, AUTOMATED 277 10^3/uL (150-450)
[2020-08-30 04:52] LABS: ANISOCYTOSIS 1+; MONOCYTES 7 % (0-5); NEUTROPHILS 78 % (28-66); PLATELET ESTIMATE NORMAL (NORMAL); POLYCHROMASIA 1+
[2020-08-30 05:17] LABS: ALBUMIN 1.4 GM/DL (3.2-5.2); ALT/SGPT 30 U/L (12-78); BILIRUBIN,TOTAL 0.5 MG/DL (0.2-1.0); BLOOD UREA NITROGEN 25 MG/DL (7-18); CALCIUM LEVEL 8.9 MG/DL (8.8-10.2); CARBON DIOXIDE LEVEL 24 MEQ/L (21-32); CHLORIDE LEVEL 100 MEQ/L (98-107); CREATININE FOR GFR 0.81 MG/DL (0.70-1.30); GLOMERULAR FILTRATION RATE > 60.0 (>49); GLUCOSE, FASTING 165 MG/DL (70-100); MAGNESIUM LEVEL 2.3 MG/DL (1.8-2.4); POTASSIUM SERUM 3.7 MEQ/L (3.5-5.1); SODIUM LEVEL 133 MEQ/L (136-145)
[2020-08-30] MEDS: TIOTROPIUM INHALER/CAPSULE (SPIRIVA) INH SCH (07:27)
[2020-08-30] MEDS: SYMBICORT 160/4.5MCG INHALER 6GM INH SCH ×2 (07:27→17:56)
[2020-08-30] MEDS: IPRATROPIUM 0.5MG/ALBUTEROL 2.5MG INH SOL UD 3ML (DUONEB) NEB SCH ×4 (07:28→17:54)
[2020-08-30] MEDS ORDERED: NS 1,000 ML IV ONE (08:15)
--- NOTE | 2020-08-30 09:16 | REP ---
INDICATION: post chest tube. COMPARISON: Today at 12:02 a.m. TECHNIQUE: PA and lateral FINDINGS: The pneumothorax seen previously has decreased significantly. The small residual persists. The right-sided thoracotomy tube is essentially unchanged. Abnormal lung opacities on the right have not changed significantly. Although the prior exam was obtained using portable technique the left lung appears somewhat improved. There is no new osseous abnormality. The cardiomediastinal silhouette is essentially unchanged. IMPRESSION: As above <Electronically signed by Floyd Headley > 08/30/20 0992
[2020-08-30] MEDS: MOM 30ML SUSPENSION UDC PO SCH (09:58)
[2020-08-30] MEDS: VANCOMYCIN HCL 750 MG, VIAL MATE ADAPTER 1 EACH in NS 250 ML IV SCH ×2 (09:59→16:03)
[2020-08-30] MEDS: PANTOPRAZOLE 40MG TAB (PROTONIX) PO SCH (09:59)
[2020-08-30] MEDS: MULTIVITAMINS/MINERALS THERAP 1 TAB PO SCH (09:59)
[2020-08-30] MEDS: HEPARIN SOD (PORCINE) 5000UNITS/ML 1ML VIAL/SYRINGE SC SCH ×2 (10:00→21:01)
[2020-08-30] MEDS: methylPREDNISolone 125MG 2ML VIAL IV SCH ×3 (10:01→21:02)
--- NOTE | 2020-08-30 10:05 | ECGEPIP ---
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
--- NOTE | 2020-08-30 13:27 | IPNPDOC ---
Text Note Date of Service The patient was seen on 08/30/20. NOTE Subjective: Patient stated his breathing improved and he feels better. Patient denied fever, chills, nausea, vomiting. Objective: GENERAL APPEARANCE: Cachectic ill looking male HEENT: no scleral icterus, no JVD, EOMI CARDIOVASCULAR: S1S2 LUNGS: Coarse lung sounds on the right side, chest tube in place ABDOMEN: soft & not tender w palpitation MUSCULOSKELETAL: no cyanosis, no swelling INTEGUMENT: no generalized pallor NEUROLOGICAL: cranial nerve function from 2-12 intact intact, follows commands, speech not dysarthric ASSESSMENT: 65 year old male with PMHx of stage IIIB non small cell lung CA, recurrent pneumonia, COPD, anxiety, and radiation induced esophagitis who presented to the ED after 6 days worsening cough and shortness of breath found to have right pneumothorax on CXR admitted for chest tube placement and further management Right pneumothorax/lung empyema Pulmonology team placed a right chest tube Await pleural fluid culture. Pleural fluid showed pH 7.1 with [id number]. Most likely patient developed right edema Lung empyema Superimposed with radiation pneumonitis Patient severely immune compromised secondary to advanced malignancy and immu notherapy Await blood culture, await pleural fluid culture Continue broad-spectrum antibiotics with vancomycin and Zosyn day 1 Continue steroids IV Stage IIIB non-small cell lung carcinoma (squamous cell) s/p chemo and radiation currently on durvalumab immunotherapy per Dr. Mcgraw, last dose 08/24/20 Prognosis remains poor Palliative care on board Cachexia/protein calorie malnutrition Secondary to malignancy Ensure Full fitness coordinator assessment COPD continue home inhalers, prn nebs Radiation esophagitis continue home Carafate and PPI Hx alcohol abuse with possible recent use no current signs of withdrawal Anxiety continue home mirtazapine VS,Fishbone, I+O VS, Fishbone, I+O Laboratory Tests 08/29/20 21:05 08/30/20 04:06 Vital Signs Date Time Temp Pulse Resp B/P (MAP) Pulse Ox O2 Delivery O2 Flow Rate FiO2 08/30/20 12:00 3.0 08/30/20 12:00 97.0 87 18 111/77 (88) 92 Nasal Cannula 08/30/20 07:00 50 I&O- Last 24 Hours up to 6 AM 08/30/20 06:00 Intake Total 1440 ml Output Total 350 ml Balance 1090 ml DROZHZHIN,TRACEY DO August 30, 2020 13:27
[2020-08-30 16:52] LABS: OSMOLALITY URINE 678 MOSM/KG (50-1400)
[2020-08-30 17:07] LABS: SODIUM,RANDOM URINE < 10 MEQ/L
--- NOTE | 2020-08-30 19:05 | RO ---
OPERATIVE NOTE DATE OF OPERATION: 08/29/2020 PREOPERATIVE DIAGNOSIS: Pneumothorax. POSTPROCEDURE DIAGNOSIS: Pneumothorax. PROCEDURE: Right chest tube. SURGEON: John Polanco DO FUEL ATTENDANT: Holly Nieves DO Informed consent was signed at the bedside. ANESTHESIA: Versed 2.5 mg given IV. DESCRIPTION OF PROCEDURE: A timeout was performed, identifying the correct site, correct procedure, with two patient identifiers. The fifth intercostal space was marked and the patient was prepped and draped in a sterile manner. 1% lidocaine was then injected down to the level of the pleura. With just the skin needle, there was a dennison of air. The patient is very thin. A freddie in the skin was made and the introducer needle was advanced into the pleural space. The wire was fed through the needle and the needle was removed. The dilator from the percutaneous 8.5 Ethiopian Arrow kit was then placed and this was removed. The 8.5 Ethiopian tube was then inserted. The wire was removed and was placed via modified Seldinger technique at 15 cm. This was sutured in place. Post-procedure chest x-ray shows good position of the chest tube in the pleural space. No observed complications. When the chest tube was hooked up to Pleur-Evac, there was an air leak and return of muddy brown pleural fluid. Pleural fluid appeared necrotic and pus-like with a very foul smell. This was sent for culture amongst other testing. The chest tube was then secured in place. The patient had improvement in oxygen saturation and is resting comfortably currently. No evidence of complications.
--- NOTE | 2020-08-30 19:05 | CCN ---
CRITICAL CARE NOTE DATE: 08/29/2020 Critical care time was 1 hour and 20 minutes; this excludes all procedures. SUBJECTIVE: I was called by the emergency room for right-sided pneumothorax in this 65-year-old male with history of stage III B squamous cell carcinoma with a recent admission in July for right-sided pneumonia. The patient reportedly had been recently started on antibiotics by his primary care, was reportedly taking Cipro and prednisone. He was not doing well at home. His daughter, Jessenia, who provided some of his history at bedside was with him the majority of the day. He had increased lethargy, positive cough with foul smelling brown sputum for quite some time. She states that he could not even ambulate 20 feet and had chest pain and eventually he gave in and came to the emergency room, as initially he was hesitant. He was found to have a pneumothorax. He is on immunotherapy. He states he recently received immunotherapy on Monday. There is some question about whether he is taking his medications appropriately. There is also a question of whether or not he is still smoking. He is a recovering alcoholic for the past 22 years. She states he stated drinking again 5 years ago. He states to this daughter that he has not been drinking for about a month, but she states she is very unsure about this possibility. 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 He was getting dates confused. Daughter had to correct his history very frequently. His daughter's history was consistent with what I am seeing in the chart. He was hospitalized in July and has a CT scan from July 25 showing right lower lobe pneumonia. They did call this postobstructive, but I do not see where the airways obstructive. It looks like a pneumonia with parapneumonic effusion. Does not appear that the parapneumonic effusion was drained. PHYSICAL EXAMINATION: Temperature is 98.0, pulse is 119, respiratory rate is 21, blood pressure is 113/86 with oxygen saturation 90% on 0.05 FiO2. General: Awake, alert, slightly anxious, poor historian. HEENT: Sclerae clear, nonicteric. Pupils are approximately 3 mm, but reactive to light. Mucous membranes appear dry. Tongue is midline. Neck is supple. No tracheal deviation or mass. Lymphs: No cervical, supraclavicular or axillary adenopathy. Cardiac: Tachycardic, S1, S2 without audible murmur, rub or gallop. No elevated jugular venous pressure (JVP). No displaced PMI. Pulmonary: Decreased breath sounds on the right compared to the left. I do not auscultate any rhonchi or rales. There is a slight prolongation expiratory phase. Abdomen is scaphoid, soft, nontender, non-distended, non-discernible hepatosplenomegaly. No masses or hernia. Lower extremities without cyanosis, clubbing or edema. Skin is pale. Chest x-ray shows a moderate size pneumothorax. Blood work shows hyponatremia with a sodium of 129, potassium 4.7, chloride of 94, bicarbonate of 22, BUN of 27 and creatinine of 1.10. Lactate is elevated at 2.1 with a calcium of 8.5, albumin of 1.9, White count is 10.0 with 85% neutrophilia, 6% bandemia. IMPRESSION: 1. Right pneumothorax, possibly from pneumonitis, possibly infection, possibly from emphysema, concern about lung necrosis given reported history of foul breath. Will place on hydro steroids for possible pneumonitis, vancomycin or Zosyn due to recent hospitalization and concerns for necrotic pneumonia. 2. Hyponatremia may be secondary to volume depletion versus alcohol abuse. Will monitor for signs and symptoms of alcohol withdrawal. 3. Protein malnourishment. Will place on multivitamin, thiamin to prevent refeeding syndrome. The patient will require nutrition counseling. Overall, I am concerned about necrotic lung. The patient has very poor prognosis. Will continue to monitor in the ICU as he has a high risk of during this hospitalization and at this point in time remains full code. Will have continued discussions with him and his family regarding code status. ADRY
--- NOTE | 2020-08-30 19:05 | CCN ---
CRITICAL CARE NOTE DATE: 08/30/2020 CRITICAL CARE TIME: 54 minutes, this excludes all procedures. SUBJECTIVE: Day number two of Vancomycin, Zosyn. Patient much more alert this morning. Continues to have purulent brown drainage from the chest tube with a large air leak. Minimal hypotension overnight. Lactate improved to 1.5. No events on telemetry overnight. OBJECTIVE: Vital signs: Temperature 97.6, pulse 66, blood pressure is 89/71 with a MAP of 77, oxygen saturation is 95% on 0.50 Venturi Mask. General: The patient is awake, sitting at bedside without distress. HEENT: Sclerae are clear, nonicteric. Pupils are equal and reactive to light. Mucous membranes are moist. Tongue has brown discoloration. Mallampati I. Neck is supple. No tracheal deviation or mass. Lymph: No cervical, supraclavicular, or axillary adenopathy. Cardiac: Distant S1, S2 without audible murmur, rub, or gallop. PMI is nondisplaced. No le edema. Pulmonary: Diffuse expiratory and inspiratory wheeze with expiratory rhonchi on the right, fairly clear on the left except for transmitted breath sounds from the right. Chest tube in place without surrounding erythema or exudate. As mentioned above large air leak with approximately 300 mL of brown purulent material drained overnight. Abdomen: Soft, nontender, nondistended. No hepatosplenomegaly. No masses or hernia. Extremities: No cyanosis, clubbing, or edema. SKIN: Pale without rash, jaundice, bruising. Laboratory evaluation shows a white count of 7.3 which is down from 10 with now 15% bands. Hemoglobin 11.6. Platelet count of 277. Sodium is up to 133 from 129, potassium 3.7, chloride 100, bicarb 24, BUN of 25, creatinine of 0.81 with a glucose of 165. As mentioned above, lactic acidosis improved from 2.1 to 1.5. Albumin is at 1.4. Chest x-ray shows improved pneumothorax and chest tubes in place in the lateral chest cavity. There is extensive infiltrate on the right. It does not appear to be significant residual effusion at this point in time. There is increased AP diameter with increased retrosternal space. Trachea is midline. Minimal infiltrate on the left. ASSESSMENT AND PLAN: 1. Pneumothorax with acute presentation and respiratory distress and ongoing hypoxia. Suspect likely from untreated empyema and partially treated pneumonia. The patient with obvious necrotic brown purulent drainage. Significant bandemia on Vancomycin, Zosyn, as he was recently hospitalized. Given the patient's underlying disease, the extent of the empyema and necrosis he has a very guarded prognosis. The air leak currently is very large. I am not sure this will heal on its own. 2. Pneumonitis on immunotherapy. I have placed him on steroids. We will decrease his Solu-Medrol in the face of infection down to 60 from 100. 3. Hyponatremia possibly secondary to SIADH versus alcohol use versus dehydration. Some improvement with hydration. We will continue to monitor. No evidence of seizure activity or neurologic symptoms. 4. Protein malnourishment severe in nature. Encourage protein intake. Overall prognosis extremely guarded.
[2020-08-30] MEDS ORDERED: METOPROLOL 5 MG/5 ML VIAL IV STA (21:51)
[2020-08-30 22:18] LABS: HEMOGLOBIN 11.7 g/dl (13.5-17.5); MEAN CORPUSCULAR HEMOGLOBIN 32.6 pg (27.0-33.0); MEAN CORPUSCULAR HGB CONC 34.4 g/dl (32.0-36.5); MEAN CORPUSCULAR VOLUME 94.7 fl (80.0-96.0); PLATELET COUNT, AUTOMATED 290 10^3/uL (150-450); RED BLOOD COUNT 3.59 10^6/uL (4.30-6.10); WHITE BLOOD COUNT 9.4 10^3/uL (4.0-10.0)
[2020-08-30 22:40] LABS: ALBUMIN 1.5 GM/DL (3.2-5.2); ALT/SGPT 49 U/L (12-78); BILIRUBIN,TOTAL 0.2 MG/DL (0.2-1.0); BLOOD UREA NITROGEN 30 MG/DL (7-18); CARBON DIOXIDE LEVEL 22 MEQ/L (21-32); CHLORIDE LEVEL 103 MEQ/L (98-107); CREATININE FOR GFR 0.91 MG/DL (0.70-1.30); GLOMERULAR FILTRATION RATE > 60.0 (>49); GLUCOSE, FASTING 202 MG/DL (70-100); MAGNESIUM LEVEL 2.6 MG/DL (1.8-2.4); POTASSIUM SERUM 3.8 MEQ/L (3.5-5.1); SODIUM LEVEL 134 MEQ/L (136-145); TOTAL PROTEIN 5.3 GM/DL (6.4-8.2)
[2020-08-30 22:57] LABS: METAMYELOCYTES 3 % (0-0); MONOCYTES 1 % (0-5); NEUTROPHILS 63 % (28-66)
[2020-08-30 22:58] LABS: PLATELET ESTIMATE NORMAL (NORMAL); TOXIC VACUOLATION 1+
[2020-08-30] MEDS: METOPROLOL TART 25 MG TABLET PO SCH (23:01)
[2020-08-30] MEDS: METOPROLOL 5 MG/5 ML VIAL IV PRN (23:54)
[2020-08-31] VITALS (35 sets, daily range): BP systolic 89–135; BP diastolic 55–89
[2020-08-31] MEDS ORDERED: DIGOXIN INJ 0.5 MG/2 ML AMP (J1160) IV ONE (01:15)
[2020-08-31] MEDS: VANCOMYCIN HCL 1,000 MG, VIAL MATE ADAPTER 1 EACH in NS 250 ML IV SCH ×3 (01:32→17:16)
[2020-08-31] MEDS: methylPREDNISolone 125MG 2ML VIAL IV SCH ×4 (04:09→21:10)
[2020-08-31 04:16] LABS: HEMATOCRIT 33.7 % (42.0-52.0); HEMOGLOBIN 11.4 g/dl (13.5-17.5); MEAN CORPUSCULAR HEMOGLOBIN 32.1 pg (27.0-33.0); MEAN CORPUSCULAR HGB CONC 33.8 g/dl (32.0-36.5); MEAN CORPUSCULAR VOLUME 94.9 fl (80.0-96.0); PLATELET COUNT, AUTOMATED 282 10^3/uL (150-450); RED BLOOD COUNT 3.55 10^6/uL (4.30-6.10); WHITE BLOOD COUNT 10.6 10^3/uL (4.0-10.0)
[2020-08-31 04:41] LABS: LYMPHOCYTES 2 % (16-44); METAMYELOCYTES 6 % (0-0); MONOCYTES 1 % (0-5); MYELOCYTES 1 % (0-0); NEUTROPHILS 77 % (28-66); PLATELET ESTIMATE NORMAL (NORMAL)
[2020-08-31 04:42] LABS: POLYCHROMASIA 1+
[2020-08-31 04:44] LABS: ALBUMIN 1.4 GM/DL (3.2-5.2); ALT/SGPT 50 U/L (12-78); BILIRUBIN,TOTAL 0.3 MG/DL (0.2-1.0); BLOOD UREA NITROGEN 31 MG/DL (7-18); CALCIUM LEVEL 8.1 MG/DL (8.8-10.2); CARBON DIOXIDE LEVEL 22 MEQ/L (21-32); CHLORIDE LEVEL 102 MEQ/L (98-107); CREATININE FOR GFR 0.79 MG/DL (0.70-1.30); GLOMERULAR FILTRATION RATE > 60.0 (>49); GLUCOSE, FASTING 148 MG/DL (70-100); MAGNESIUM LEVEL 2.4 MG/DL (1.8-2.4); POTASSIUM SERUM 4.3 MEQ/L (3.5-5.1); SODIUM LEVEL 133 MEQ/L (136-145); TOTAL PROTEIN 4.9 GM/DL (6.4-8.2)
[2020-08-31] MEDS: PIPERACILLIN/TAZOBACTAM SOD 3.375 GM in D5W MINI-BAG PLUS 50 ML IV SCH ×4 (06:27→23:59)
[2020-08-31] MEDS: KETOROLAC 30 MG/ML 1ML VIAL IV SCH ×3 (06:28→18:14)
[2020-08-31] MEDS: METOPROLOL TART 25 MG TABLET PO SCH (06:28)
[2020-08-31] MEDS: SYMBICORT 160/4.5MCG INHALER 6GM INH SCH ×2 (07:25→19:21)
[2020-08-31] MEDS: TIOTROPIUM INHALER/CAPSULE (SPIRIVA) INH SCH (07:25)
[2020-08-31] MEDS: IPRATROPIUM 0.5MG/ALBUTEROL 2.5MG INH SOL UD 3ML (DUONEB) NEB SCH ×4 (07:25→19:21)
[2020-08-31] MEDS: PERCOCET 5MG/325MG TAB PO PRN ×3 (07:49→21:24)
[2020-08-31] MEDS: MOM 30ML SUSPENSION UDC PO SCH (09:21)
[2020-08-31] MEDS: ENOXAPARIN 30MG/0.3ML SYRINGE (J1650 PER 10MG) SC SCH (09:22)
[2020-08-31] MEDS: MULTIVITAMINS/MINERALS THERAP 1 TAB PO SCH (09:22)
[2020-08-31] MEDS: PANTOPRAZOLE 40MG TAB (PROTONIX) PO SCH (09:22)
[2020-08-31] MEDS: SUCRALFATE SUSP 1GM/10ML UD PO SCH ×4 (09:22→21:10)
[2020-08-31] MEDS: DOCUSATE SODIUM 100MG CAPSULE PO SCH ×2 (09:22→21:10)
[2020-08-31] MEDS: SODIUM CHLORIDE 1 GM TAB PO SCH ×2 (09:22→21:10)
[2020-08-31] MEDS: DIGOXIN INJ 0.5 MG/2 ML AMP (J1160) IV SCH ×2 (09:25→11:07)
--- NOTE | 2020-08-31 10:08 | REP ---
INDICATION: PERSISTENT PNEUMOTHORAX WITH EMPYEMA COMPARISON: Multiple the latest 07/25/2020 a contrast-enhanced exam TECHNIQUE: Helical technique without intravenous contrast administration FINDINGS: Limited evaluation of the mediastinum and pulmonary juany shows adenopathy which may have increased from the prior exam but difficult for and exact comparison since the prior exam was obtained after intravenous contrast administration. There is no evidence of significant change in the imaged upper abdomen or imaged osseous structures. Evaluation of the lung majano shows a moderate size right pneumothorax with a thoracotomy tube in place. There are advanced and marked emphysematous changes seen throughout the lung majano with abnormal patchy opacities which have diffusely increased. Significant scattered air densities are seen in the right lower lobe within suspected consolidation and and essentially unchanged right pleural effusion. IMPRESSION: 1. Adenopathy as described above. 2. Worsened lung majano as described above. 3. Right-sided pneumothorax as described above. 4. Right pleural effusion and right lower lobe air densities as described above. <Electronically signed by Floyd Headley > 08/31/20 [id number]
--- NOTE | 2020-08-31 10:08 | REP ---
INDICATION: pneumothorax COMPARISON: 08/30/2020. TECHNIQUE: PA/Lateral FINDINGS: There is a small right pneumothorax again noted similar to the prior study. There are diffuse bilateral infiltrates, not significantly changed on the right but mildly increased on the left. The heart and mediastinum are unchanged. Right chest catheter is noted with the tip overlying the right parahilar region, more anteriorly located than the prior study.. IMPRESSION: Right pleural catheter appears to have been manipulated and is changed in position. There is again a small right pneumothorax essentially unchanged. Right lung infiltrates are unchanged. Left lung infiltrates have mildly increased. <Electronically signed by Mata Titus > 08/31/20 [id number]
[2020-08-31 10:15] LABS: CK-MB VALUE MASS 1.5 NG/ML (<3.6); CPK CREATINE PHOSPHOKINASE 35 U/L (39-308); MB/CK RELATIVE INDEX 4.29 (< OR =4); TROPONIN I < 0.02 NG/ML (< 0.10)
--- NOTE | 2020-08-31 10:21 | CCN ---
CRITICAL CARE NOTE DATE: 08/31/2020 CRITICAL CARE TIME: 53 minutes. This excludes all procedures. SUBJECTIVE: At bedside this morning, the patient still continues to have a very large air leak. The patient went into atrial fibrillation with RVR, being treated by primary care team and I suggested Dig loading due to his tenuous blood pressure, consideration of Diltiazem if tolerated as metoprolol caused hypotension overnight. Would consider echocardiogram. However, I believe most likely the onset of atrial fibrillation is likely due to his pulmonary disease. He states his cough has decreased. He is no longer producing mucus. He still continues to have brown purulent drainage from the chest tube. Unfortunately chest x-ray shows improvement of the pneumothorax but not complete resolution. I have a suspicion of underlying bronchopleural fistula in the face of an empyema which can be devastating. The patient is concerned about his prognosis and rightfully so. OBJECTIVE: Vital signs: Temperature is 97.3, pulse is 133 in atrial fibrillation, respiratory rate of 22, blood pressure is 103/66, oxygen saturation is 90% on 5 liters. The patient is net positive 1.9 liters overnight. General: Awake, alert, and oriented, is able to speak, is dyspneic with minimal conversation. HEENT: Sclerae are clear, nonicteric. Pupils are equal and reactive to light. Mucous membranes are moist. Tongue is midline with brown discoloration. Neck is supple. No tracheal deviation or mass, without lesion. Lymph: No cervical, supraclavicular, or axillary adenopathy. Cardiac: Tachycardic, irregularly irregular, S1, S2 without audible murmur, rub, or gallop. PMI is nondisplaced. There is no systemic edema. Pulmonary: Decreased breath sounds throughout both lung majano, rhonchorous. Chest tube sounds from the right. Some air entry on the right. Left is fairly clear without rales, rhonchi or wheeze. There is a slight prolongation of the expiratory phase. Abdomen: Soft, nontender, nondistended. No hepatosplenomegaly. No masses or hernia. Extremities: No cyanosis, clubbing, or edema. Laboratory evaluation shows a sodium of 133, potassium 4.3, chloride 102, bicarb 22, BUN of 31, creatinine of 0.79, and a glucose of 148. White blood cell count is 10.6, hemoglobin 11.4, hematocrit 33.7, with a platelet count of 282. There is 13% bandemia. ASSESSMENT AND PLAN: 1. Pneumothorax with empyema likely secondary to untreated infection in the face of possible pneumonitis and malignancy. We will obtain chest CT today to see the extent of the disease to see if there is a place where we can identify he has an air leak. Patient on day two of Vancomycin and Zosyn for empyema. Pleural fluid showed 86,000 white blood cells, predominantly PMNs with a pH of 7.14, very high LDH. Culture is still pending but does show many gram-positive cocci and gram negative rods and gram positive rods. Blood culture is no growth so far. 2. Hyponatremia likely dehydration, low FENa. We will continue gentle hydration. 3. Severe protein malnourishment. The patient states he was not hungry this morning. I will order Ensure or Boost for protein supplementation. 4. Primary lung malignancy. Given the pneumonitis and the infection he has poor prognosis at this point in time. 5. Atrial fibrillation with RVR, adding Dig. Could consider Diltiazem drip if this does not rate control the patient. 6. DVT prophylaxis. I have changed this to Lovenox due to his high risk of thromboembolic disease.
[2020-08-31] MEDS ORDERED: MIDAZOLAM INJ 2MG/2ML VIAL (J2250 PER 1MG) As Ordered ONE (11:42)
[2020-08-31] MEDS ORDERED: flumazeniL 0.5 MG/5 ML VIAL As Ordered ONE (11:43)
[2020-08-31] MEDS ORDERED: LIDOCAINE 1% MDV 20ML VIAL As Ordered ONE (11:43)
--- NOTE | 2020-08-31 12:13 | IPNPDOC ---
Text Note Date of Service The patient was seen on 08/31/20. NOTE Subjective: Patient developed atrial fibrillation with rapid ventricular rate overnight. I discussed with patient the goal of treatment and prognosis. Patient decided to change his CODE STATUS to DNR/DNI Objective: GENERAL APPEARANCE: Cachectic ill looking male HEENT: no scleral icterus, no JVD, EOMI CARDIOVASCULAR: Irregularly irregular with heart rate around 1:30 LUNGS: Coarse lung sounds bilaterally, right chest tube in place ABDOMEN: soft & not tender w palpitation MUSCULOSKELETAL: no cyanosis, no swelling INTEGUMENT: no generalized pallor NEUROLOGICAL: cranial nerve function from 2-12 intact intact, follows commands, speech not dysarthric ASSESSMENT: 65 year old male with PMHx of stage IIIB non small cell lung CA, recurrent pneumonia, COPD, anxiety, and radiation induced esophagitis who presented to the ED after 6 days worsening cough and shortness of breath found to have right pneumothorax on CXR admitted for chest tube placement and further management Right pneumothorax/lung empyema/acute hypoxemic respiratory failure Pulmonology team placed a right chest tube on 08/29/20 Await pleural fluid culture. Pleural fluid showed pH 7.1 with [id number]. Most likely patient developed right empyema Prognosis guarded. CT was done today and showed worsened lung majano with moderate sides of right pneumothorax Atrial fibrillation with rapid ventricular rate Most likely secondary to respiratory distress superimposed with pulmonary hypertension Patient received loading dose of digoxin, continue metoprolol 50 mg every 8 hours. We'll continue to monitor heart rate. Will consider diltiazem drip for better control I will not start anticoagulation due to right-sided chest tube and high risk of bleed Lung empyema Superimposed with radiation pneumonitis Patient severely immune compromised secondary to advanced malignancy and immunotherapy blood culture negative, await pleural fluid culture Continue broad-spectrum antibiotics with vancomycin and Zosyn day 2 Continue steroids IV Stage IIIB non-small cell lung carcinoma (squamous cell) s/p chemo and radiation currently on durvalumab immunotherapy per Dr. Mcgraw, last dose 08/24/20 Prognosis remains poor Palliative care on board. 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 Full marriage and family social worker assessment COPD continue home inhalers, prn nebs Radiation esophagitis continue home Carafate and PPI Hx alcohol abuse with possible recent use no current signs of withdrawal Anxiety continue home mirtazapine VS,Fishbone, I+O VS, Fishbone, I+O Laboratory Tests 08/30/20 22:01 08/31/20 04:01 Vital Signs Date Time Temp Pulse Resp B/P (MAP) Pulse Ox O2 Delivery O2 Flow Rate FiO2 08/31/20 11:07 118 08/31/20 10:04 113/81 (92) 92 Venturi Mask 40 08/31/20 08:19 22 15.0 08/31/20 08:01 97.3 I&O- Last 24 Hours up to 6 AM 08/31/20 06:00 Intake Total 3050 ml Output Total 2110 ml Balance 940 ml TRACEY DIAS DO August 31, 2020 12:13
[2020-08-31] MEDS ORDERED: diltiaZEM 125 MG in NS 100 ML IV SCH (12:30)
--- NOTE | 2020-08-31 12:56 | REP ---
INDICATION: s/p chest tube placement. COMPARISON: 08/31/2020, 8:53 a.m.. TECHNIQUE: Single portable AP view of the chest was performed. FINDINGS: New right chest tube has been placed. There is a very small right pneumothorax which has improved since the prior study. Bilateral infiltrates appear essentially unchanged. The heart mediastinum appear unchanged. IMPRESSION: New right chest tube has been placed. The small right pneumothorax has decreased. <Electronically signed by Mata Titus > 08/31/20 [id number]
[2020-08-31] MEDS ORDERED: MIDAZOLAM INJ 2MG/2ML VIAL (J2250 PER 1MG) IV ONE (13:00)
[2020-08-31] MEDS ORDERED: LIDOCAINE 1% MDV 20ML VIAL SC ONE (13:00)
[2020-08-31] MEDS: METOPROLOL TART 50 MG TAB PO SCH ×3 (13:24→21:14)
--- NOTE | 2020-08-31 16:01 | RO ---
OPERATIVE NOTE DATE OF OPERATION: 08/31/2020 PREPROCEDURE DIAGNOSES: Bronchopleural fistula and pneumothorax. POSTPROCEDURE DIAGNOSES: Bronchopleural fistula and pneumothorax. PROCEDURE: Insertion of a right anterior-superior #20 chest tube. SURGEON: Wilfredo Martinez M.D. CAR SEAT COVERER: None. ANESTHESIA: 4 mg Versed. DESCRIPTION OF PROCEDURE: Under satisfactory moderate sedation achieved with eventually 4 mg of Versed, the patient was prepped and draped in the usual sterile fashion. The first intercostal space above the second rib was infiltrated with 1% Lidocaine to the pleura. Incision was made and a tunnel was created in the chest without difficulty. A #20 chest tube was placed and aimed towards the cupula. The chest tube was secured to the chest wall with a #2 Tevdek suture and connected to the Pleur-Evac. The patient tolerated the procedure well and a chest x-ray is pending.
--- NOTE | 2020-08-31 16:03 | ECGEPIP ---
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 Electronically Signed on 08-31-2020 16:02:48 EDT by Ciro Blank
[2020-08-31 16:57] LABS: CK-MB VALUE MASS 2.1 NG/ML (<3.6); CPK CREATINE PHOSPHOKINASE 49 U/L (39-308); MB/CK RELATIVE INDEX 4.29 (< OR =4); TROPONIN I < 0.02 NG/ML (< 0.10)
[2020-08-31] MEDS: MIRTAZAPINE 15 MG TAB PO SCH (21:10)
[2020-09-01] VITALS (18 sets, daily range): BP systolic 113–150; BP diastolic 75–91
[2020-09-01 01:21] LABS: CK-MB VALUE MASS 1.4 NG/ML (<3.6); CPK CREATINE PHOSPHOKINASE 42 U/L (39-308); MB/CK RELATIVE INDEX 3.33 (< OR =4); TROPONIN I < 0.02 NG/ML (< 0.10)
[2020-09-01] MEDS: VANCOMYCIN HCL 1,000 MG, VIAL MATE ADAPTER 1 EACH in NS 250 ML IV SCH (01:50)
[2020-09-01] MEDS: methylPREDNISolone 125MG 2ML VIAL IV SCH (04:58)
[2020-09-01 05:08] LABS: HEMOGLOBIN 12.6 g/dl (13.5-17.5); MEAN CORPUSCULAR HEMOGLOBIN 32.1 pg (27.0-33.0); MEAN CORPUSCULAR HGB CONC 31.5 g/dl (32.0-36.5); PLATELET COUNT, AUTOMATED 235 10^3/uL (150-450); RED BLOOD COUNT 3.92 10^6/uL (4.30-6.10); WHITE BLOOD COUNT 9.4 10^3/uL (4.0-10.0)
[2020-09-01 05:30] LABS: METAMYELOCYTES 5 % (0-0); NEUTROPHILS 90 % (28-66)
[2020-09-01 05:31] LABS: ANISOCYTOSIS 1+; PLATELET ESTIMATE NORMAL (NORMAL)
[2020-09-01 05:33] LABS: ALBUMIN 1.1 GM/DL (3.2-5.2); ALT/SGPT 52 U/L (12-78); BILIRUBIN,TOTAL 0.2 MG/DL (0.2-1.0); BLOOD UREA NITROGEN 35 MG/DL (7-18); CALCIUM LEVEL 8.1 MG/DL (8.8-10.2); CARBON DIOXIDE LEVEL 27 MEQ/L (21-32); CHLORIDE LEVEL 105 MEQ/L (98-107); GLOMERULAR FILTRATION RATE > 60.0 (>49); GLUCOSE, FASTING 117 MG/DL (70-100); MAGNESIUM LEVEL 2.6 MG/DL (1.8-2.4); POTASSIUM SERUM 5.2 MEQ/L (3.5-5.1); SODIUM LEVEL 135 MEQ/L (136-145); TOTAL PROTEIN 5.5 GM/DL (6.4-8.2)
[2020-09-01] MEDS: METOPROLOL TART 50 MG TAB PO SCH ×3 (06:27→20:32)
[2020-09-01] MEDS: KETOROLAC 30 MG/ML 1ML VIAL IV SCH ×2 (06:27)
[2020-09-01] MEDS: PIPERACILLIN/TAZOBACTAM SOD 3.375 GM in D5W MINI-BAG PLUS 50 ML IV SCH ×3 (06:30→18:08)
[2020-09-01] MEDS: SYMBICORT 160/4.5MCG INHALER 6GM INH SCH ×2 (07:36→19:24)
[2020-09-01] MEDS: IPRATROPIUM 0.5MG/ALBUTEROL 2.5MG INH SOL UD 3ML (DUONEB) NEB SCH ×4 (07:36→19:21)
[2020-09-01] MEDS: TIOTROPIUM INHALER/CAPSULE (SPIRIVA) INH SCH (07:36)
[2020-09-01 08:44] LABS: BLOOD UREA NITROGEN 38 MG/DL (7-18); CALCIUM LEVEL 8.3 MG/DL (8.8-10.2); CARBON DIOXIDE LEVEL 25 MEQ/L (21-32); CHLORIDE LEVEL 103 MEQ/L (98-107); CREATININE FOR GFR 0.75 MG/DL (0.70-1.30); GLOMERULAR FILTRATION RATE > 60.0 (>49); GLUCOSE, FASTING 104 MG/DL (70-100); POTASSIUM SERUM 5.8 MEQ/L (3.5-5.1); SODIUM LEVEL 134 MEQ/L (136-145)
[2020-09-01] MEDS ORDERED: DEXTROSE 50% 50 ML SYRINGE IV STA (08:57)
[2020-09-01] MEDS ORDERED: HumuLIN R (REGULAR) INSULIN (NovoLIN R) **100U/ML** PER UNIT IV STA (08:57)
[2020-09-01] MEDS ORDERED: FUROSEMIDE 40MG/4ML VIAL (J1940) IV ONE (09:00)
[2020-09-01] MEDS ORDERED: CALCIUM GLUCONATE 1,000 MG in D5W MINI-BAG PLUS 100 ML IV ONE (09:00)
[2020-09-01] MEDS: SUCRALFATE SUSP 1GM/10ML UD PO SCH ×4 (09:13→20:31)
[2020-09-01] MEDS: VANCOMYCIN HCL 750 MG, VIAL MATE ADAPTER 1 EACH in NS 250 ML IV SCH ×2 (09:13→17:09)
[2020-09-01] MEDS: MOM 30ML SUSPENSION UDC PO SCH (09:13)
[2020-09-01] MEDS: SODIUM CHLORIDE 1 GM TAB PO SCH ×2 (09:15→20:31)
[2020-09-01] MEDS: DOCUSATE SODIUM 100MG CAPSULE PO SCH ×2 (09:15→20:31)
[2020-09-01] MEDS: PERCOCET 5MG/325MG TAB PO PRN ×3 (09:15→19:31)
[2020-09-01] MEDS: ENOXAPARIN 30MG/0.3ML SYRINGE (J1650 PER 10MG) SC SCH (09:16)
[2020-09-01] MEDS: PANTOPRAZOLE 40MG TAB (PROTONIX) PO SCH (09:16)
[2020-09-01] MEDS: MULTIVITAMINS/MINERALS THERAP 1 TAB PO SCH (09:16)
--- NOTE | 2020-09-01 09:45 | REP ---
INDICATION: pneumothorax COMPARISON: 08/31/2020. TECHNIQUE: PA/Lateral FINDINGS: Right chest tube remains in place. There is a very small right pneumothorax essentially unchanged. Diffuse bilateral infiltrates are stable. Heart mediastinum are unchanged. IMPRESSION: Stable exam. <Electronically signed by Mata Titus > 09/01/20 [id number]
--- NOTE | 2020-09-01 11:47 | IPN ---
PROGRESS NOTE DATE: 09/01/2020 SUBJECTIVE: Mr. Morse is resting at bedside. No respiratory distress. Easily arousable when I enter the room. He states he has a cough that is nonproductive. No hemoptysis. He has not been ambulating; therefore, will ensure this gets done with the assistance of a nurse on a daily basis. He has had no fever overnight. Chest tube has large air leak. Some serosanguineous drainage, more serosanguineous than his prior brown pus-like material. OBJECTIVE: VITAL SIGNS: Temperature 98.0, pulse 83, respiratory rate 28, blood pressure 119/73, oxygen saturation 94% on 15 L. GENERAL: Awake, alert, and oriented. Affect and mood are appropriate. Nutrition and hygiene are good. HEENT: Oral and nasal mucosa pink and moist without lesions. Tongue still with brown discoloration. NECK: Supple with no tracheal deviation or mass. LYMPHATICS: No cervical, supraclavicular, or axillary adenopathy. CARDIAC: Tachycardic S1, S2. PMI is nondisplaced. PULMONARY: Decreased breath sounds throughout. Rhonchi throughout the right with transmitted chest tube sounds from air leak. ABDOMEN: Soft, nontender, and nondistended with no hepatosplenomegaly, no masses, and no hernia. EXTREMITIES: No cyanosis or edema. MUSCULOSKELETAL: Some muscle wasting. NEUROLOGIC: No unilateral, tremor, or asterixis. IMAGING DATA: Chest x-ray shows the chest tube is in place now an anterior chest tube. Better chest expansion. Lung has expanded to the chest wall. There is better air entry into the right lower lobe. Continues to have infiltrate, but less consolidated. LABORATORY DATA: White blood cell count is 9.4, hemoglobin 12.6, platelet count of 235,000. Sodium 134, potassium up to 5.8, chloride 103, bicarb 25, BUN 38, creatinine 0.75 with a glucose of 104, and albumin of 1.1. IMPRESSION AND PLAN: 1. Pneumothorax with empyema with lung necrosis. Would continue broad-spectrum antibiotics. Chest tubes in place will likely take some time to heal. I have decreased the suction to negative 20. We will see how he does with this. 2. Hyperkalemia. His potassium-containing fluids have been stopped. I have stopped his Ketorolac and I have decreased his steroids to oral prednisone. 3. Hyponatremia. No significant change and appears better hydrated. 4. Primary lung malignancy. Will hold off on immunotherapy for now due to suspected infection empyema. 5. Atrial fibrillation with rapid ventricular response (RVR) now in a sinus tachycardia and rate controlled. 6. Severe protein malnourishment. Nutritional consult placed. Encouraged protein intake. 7. Deep vein thrombosis (DVT) prophylaxis with Lovenox. 8. Gastrointestinal (GI) prophylaxis with Protonix. Will continue to monitor the patient. He can be transferred to the PCU.
[2020-09-01 13:50] LABS: BLOOD UREA NITROGEN 39 MG/DL (7-18); CALCIUM LEVEL 8.5 MG/DL (8.8-10.2); CARBON DIOXIDE LEVEL 32 MEQ/L (21-32); CHLORIDE LEVEL 98 MEQ/L (98-107); CREATININE FOR GFR 0.75 MG/DL (0.70-1.30); GLOMERULAR FILTRATION RATE > 60.0 (>49); GLUCOSE, FASTING 117 MG/DL (70-100); SODIUM LEVEL 134 MEQ/L (136-145)
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
--- NOTE | 2020-09-01 18:07 | IPNPDOC ---
Text Note Date of Service The patient was seen on 09/01/20. NOTE Subjective: Patient stated that he feels little better today. His breathing i mproved. No fever or chills. Yesterday Insertion of a right anterior-superior #20 chest tube was done Objective: GENERAL APPEARANCE: Cachectic ill looking male HEENT: no scleral icterus, no JVD, EOMI CARDIOVASCULAR: S1-S2 LUNGS: Coarse lung sounds bilaterally, right chest tube in place, serosangui neous discharge with pus in drain, anterior chest tube in place ABDOMEN: soft & not tender w palpitation MUSCULOSKELETAL: no cyanosis, no swelling INTEGUMENT: no generalized pallor NEUROLOGICAL: cranial nerve function from 2-12 intact intact, follows commands, speech not dysarthric ASSESSMENT: 65 year old male with PMHx of stage IIIB non small cell lung CA, recurrent pneumonia, COPD, anxiety, and radiation induced esophagitis who presented to the ED after 6 days worsening cough and shortness of breath found to have right pneumothorax on CXR admitted for chest tube placement and further management Right pneumothorax/lung empyema/acute hypoxemic respiratory failure Pulmonology team placed a right chest tube on 08/29/20 Await pleural fluid culture. Pleural fluid showed pH 7.1 with wbc>86K. Most likely patient developed right empyema Prognosis guarded. CT was done and showed worsened lung majano with moderate sides of right pneumothorax Hyperkalemia Most likely secondary to potassium containing IV fluid Patient received 10 units of insulin IV and D50 Repeated BMP showed potassium of 5 Atrial fibrillation with rapid ventricular rate Most likely secondary to respiratory distress superimposed with pulmonary hypertension Patient received loading dose of digoxin, continue metoprolol 50 mg every 8 hours. We'll continue to monitor heart rate. 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 Mcgraw, last dose 08/24/20 Prognosis remains poor Palliative care on board. 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 COPD continue home inhalers, prn nebs Radiation esophagitis continue home Carafate and PPI Hx alcohol abuse with possible recent use no current signs of withdrawal Anxiety continue home mirtazapine Palliative care encounter Palliative care on board VS,Fishbone, I+O VS, Fishbone, I+O Laboratory Tests 09/01/20 04:55 09/01/20 08:04 09/01/20 12:47 Vital Signs Date Time Temp Pulse Resp B/P (MAP) Pulse Ox O2 Delivery O2 Flow Rate FiO2 09/01/20 16:00 11.0 09/01/20 16:00 98.8 96 25 115/77 (90) 94 High Flow Cannula 08/31/20 20:00 40 I&O- Last 24 Hours up to 6 AM 09/01/20 06:00 Intake Total 3135 ml Output Total 1670 ml Balance 1465 ml TRACEY DIAS DO September 01, 2020 18:07
[2020-09-01] MEDS: MIRTAZAPINE 15 MG TAB PO SCH (20:31)
[2020-09-02] VITALS: BP 119/82
[2020-09-02] MEDS: VANCOMYCIN HCL 750 MG, VIAL MATE ADAPTER 1 EACH in NS 250 ML IV SCH ×3 (01:19→17:36)
[2020-09-02 05:27] LABS: HEMATOCRIT 39.6 % (42.0-52.0); HEMOGLOBIN 13.4 g/dl (13.5-17.5); MEAN CORPUSCULAR HEMOGLOBIN 31.9 pg (27.0-33.0); MEAN CORPUSCULAR HGB CONC 33.8 g/dl (32.0-36.5); MEAN CORPUSCULAR VOLUME 94.3 fl (80.0-96.0); PLATELET COUNT, AUTOMATED 353 10^3/uL (150-450); WHITE BLOOD COUNT 12.6 10^3/uL (4.0-10.0)
[2020-09-02] MEDS: METOPROLOL TART 50 MG TAB PO SCH ×3 (05:54→20:07)
[2020-09-02] MEDS: PIPERACILLIN/TAZOBACTAM SOD 3.375 GM in D5W MINI-BAG PLUS 50 ML IV SCH ×5 (05:54→19:18)
[2020-09-02 05:55] LABS: ATYPICAL LYMPH 1 % (0-5); EOSINOPHILS 1 % (0-3); LYMPHOCYTES 3 % (16-44); METAMYELOCYTES 1 % (0-0); MONOCYTES 4 % (0-5); NEUTROPHILS 90 % (28-66); PLATELET ESTIMATE NORMAL (NORMAL)
[2020-09-02 05:56] LABS: TOXIC VACUOLATION 1+
[2020-09-02] MEDS: PERCOCET 5MG/325MG TAB PO PRN ×3 (06:02→20:05)
[2020-09-02 06:09] LABS: ALBUMIN 1.4 GM/DL (3.2-5.2); ALT/SGPT 51 U/L (12-78); BILIRUBIN,TOTAL 0.5 MG/DL (0.2-1.0); BLOOD UREA NITROGEN 27 MG/DL (7-18); CARBON DIOXIDE LEVEL 30 MEQ/L (21-32); CHLORIDE LEVEL 99 MEQ/L (98-107); CREATININE FOR GFR 0.64 MG/DL (0.70-1.30); GLOMERULAR FILTRATION RATE > 60.0 (>49); GLUCOSE, FASTING 76 MG/DL (70-100); MAGNESIUM LEVEL 2.2 MG/DL (1.8-2.4); POTASSIUM SERUM 4.6 MEQ/L (3.5-5.1); SODIUM LEVEL 135 MEQ/L (136-145)
[2020-09-02] MEDS: TIOTROPIUM INHALER/CAPSULE (SPIRIVA) INH SCH (07:24)
[2020-09-02] MEDS: SYMBICORT 160/4.5MCG INHALER 6GM INH SCH ×2 (07:25→19:24)
[2020-09-02] MEDS: IPRATROPIUM 0.5MG/ALBUTEROL 2.5MG INH SOL UD 3ML (DUONEB) NEB SCH ×4 (07:25→19:23)
[2020-09-02 07:55] VITALS: BP 109/67
[2020-09-02] MEDS: DOCUSATE SODIUM 100MG CAPSULE PO SCH ×3 (09:00→20:06)
--- NOTE | 2020-09-02 09:42 | REP ---
INDICATION: pneumothorax COMPARISON: 09/01/2020. TECHNIQUE: PA/Lateral FINDINGS: Right chest tube is unchanged in position. There is a small right pneumothorax unchanged. There is air in the soft tissues of the right chest wall. There are diffuse bilateral infiltrates which have not significantly changed. The heart and mediastinum are unchanged. IMPRESSION: Essentially stable exam. <Electronically signed by Mata Titus > 09/02/20 0939
--- NOTE | 2020-09-02 09:56 | IPN ---
Pulmonary PROGRESS NOTE DATE: 09/02/2020 SUBJECTIVE: On my arrival to the room, the patient is sleeping comfortably. He did cough up some sputum overnight. Denies any fever or chills. Fever curve is trending down. Pleural fluid culture returned showing a very resistant panel of streptococcal bacteria, streptococcus mitis, streptococcus oralis, and strep anginosus. The strep oralis was resistant to everything, but vancomycin. The other two were intermittently resistant. Given the severity of his illness and a chronic lung, I prefer that he remains on vancomycin and Zosyn. I did speak with daughter yesterday and she explained to me that the patient wants a trial for therapy, but does not want overly aggressive measures and that we will need to discuss further interventions as the time comes. OBJECTIVE: VITAL SIGNS: Temperature 99.4, pulse 116, respiratory rate 22, blood pressure 109/67 with a MAP of 81. Oxygen saturation is 92% on 15 L. HEENT: Sclerae clear, anicteric. Pupils equal, round, and reactive to light. Mucous membranes are moist. Tongue is midline. Continues to have some brownish discoloration of the tongue. Oropharynx without erythema or exudate. NECK: Supple. No tracheal deviation or mass. LYMPHATICS: No cervical, supraclavicular, or axillary adenopathy. CARDIAC: Regular S1, S2 without audible murmur, rub, or gallop. No elevated JVP. No peripheral edema. PULMONARY: Abnormal breath sounds on the right. There is rhonchi, pleural rub, and transmitted chest tube air leak sounds. The left is fairly clear, but decreased. Slight prolongation of expiratory phase. Chest tube in place without erythema or exudate. Continues with air leak. ABDOMEN: Soft, nontender, and nondistended. No hepatosplenomegaly. No masses or hernia. EXTREMITIES: No cyanosis, clubbing, or edema. LABORATORY DATA: Shows a white blood cell count of 12.6, hemoglobin of 13.4, platelet count of 353,000. Sodium 135, potassium 4.6, chloride 99, bicarb 30, BUN 27, creatinine 0.64, magnesium 2.2, calcium 9.0, alkaline phosphatase 200, albumin 1.4. IMAGING DATA: Chest x-ray shows some persistent pneumothorax. IMPRESSION: 1. Pnuemothorax with empyema, multi-drug resistant strep. Would continue vancomycin and Zosyn due to severity of illness and recent immunotherapy. I have increased his suction to -30 as he does not have complete resolution of the pneumothoraces and there continues to be a large air leak. On chest x-ray, the lung is not entirely out to the chest wall, but improved. Continues to have infiltrate in both lung majano, but more predominantly on the right. MTDD
[2020-09-02] MEDS: MULTIVITAMINS/MINERALS THERAP 1 TAB PO SCH (10:02)
[2020-09-02] MEDS: PANTOPRAZOLE 40MG TAB (PROTONIX) PO SCH (10:02)
[2020-09-02] MEDS: SUCRALFATE SUSP 1GM/10ML UD PO SCH ×4 (10:02→20:04)
[2020-09-02] MEDS: MOM 30ML SUSPENSION UDC PO SCH (10:02)
[2020-09-02] MEDS: SODIUM CHLORIDE 1 GM TAB PO SCH ×2 (10:02→21:21)
[2020-09-02] MEDS: predniSONE 10 MG TAB PO SCH (10:03)
[2020-09-02] MEDS: DIGOXIN 0.125 MG TAB PO SCH (10:03)
[2020-09-02] MEDS: ENOXAPARIN 30MG/0.3ML SYRINGE (J1650 PER 10MG) SC SCH (10:04)
[2020-09-02] MEDS ORDERED: VANCOMYCIN HCL 500 MG in D5W MINI-BAG PLUS 100 ML IV ONE (11:00)
[2020-09-02 11:45] VITALS: BP 97/69
[2020-09-02 13:36] VITALS: BP 101/71
--- NOTE | 2020-09-02 14:55 | IPNPDOC ---
Text Note Date of Service The patient was seen on 09/02/20. NOTE Subjective: Patient stated that his diet and don't feel good. No fever or chills overnight Objective: GENERAL APPEARANCE: Cachectic ill looking male HEENT: no scleral icterus, no JVD, EOMI CARDIOVASCULAR: S1-S2 LUNGS: Coarse lung sounds bilaterally, right chest tube in place, serosanguineous discharge with pus in drain, anterior chest tube in place ABDOMEN: soft & not tender w palpitation MUSCULOSKELETAL: no cyanosis, no swelling INTEGUMENT: no generalized pallor NEUROLOGICAL: cranial nerve function from 2-12 intact intact, follows commands, speech not dysarthric ASSESSMENT: 65 year old male with PMHx of stage IIIB non small cell lung CA, recurrent pneumonia, COPD, anxiety, and radiation induced esophagitis who presented to the ED after 6 days worsening cough and shortness of breath found to have right pneumothorax on CXR admitted for chest tube placement and further management Right pneumothorax/lung empyema/acute hypoxemic respiratory failure Pulmonology team placed a right chest tube on 08/29/20 Pleural fluid culture shows streptococcal bacteria, streptococcus mitis, streptococcus oralis, and strep anginosus. Pleural fluid showed pH 7.1 with wbc>86K. Most likely patient developed right empyema Prognosis guarded. CT was done and showed worsened lung majano with moderate sides of right pneumothorax Hyperkalemia Resolved Atrial fibrillation with rapid ventricular rate Most likely secondary to respiratory distress superimposed with pulmonary hypert ension Patient received loading dose of digoxin, continue metoprolol 50 mg every 8 hours. We'll continue to monitor heart rate. 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 Mcgraw, last dose 08/24/20 Prognosis remains poor Palliative care on board. 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 COPD continue home inhalers, prn nebs Radiation esophagitis continue home Carafate and PPI Hx alcohol abuse with possible recent use no current signs of withdrawal Anxiety continue home mirtazapine Palliative care encounter Palliative care on board Shellie ARMSTRONG, I+O Shellie ARMSTRONG, I+O Laboratory Tests 09/02/20 05:08 Vital Signs Date Time Temp Pulse Resp B/P (MAP) Pulse Ox O2 Delivery O2 Flow Rate FiO2 09/02/20 13:36 101/71 09/02/20 10:03 94 09/02/20 07:55 99.4 28 92 High Flow Cannula 15.0 08/31/20 20:00 40 I&O- Last 24 Hours up to 6 AM 09/02/20 06:00 Intake Total 3040 ml Output Total 2745 ml Balance 295 ml TRACEY DIAS DO September 02, 2020 14:55
[2020-09-02 15:35] VITALS: BP 100/75
--- NOTE | 2020-09-02 16:43 | IPNPDOC ---
Text Note Date of Service The patient was seen on 09/02/20. Mj was resting in bed and appeared to be in some distress due to chest tube pain, dyspnea. Nursing reported he had been able to cough up a large amount of secretions earlier. Mj's son and sister were at the bedside when I arrived. Mj stated he feels no better today. He has no appetite because of the pain he has with his chest tube and due to dyspnea. He wasusing his incentive spirometer when I arrived and was having a lot of trouble trying to use it, but did manage to do two good efforts. His sister Xenia asked about FMLA and if she might be able to get FMLA ( she is employed by [employer] ) to care for her brother when he is discharged. She was also asking about POA. I gave her Sophie Hernandez's telephone contact information for more guidance with this. Xenia asked about home health nursing for Mj. I told her the [facility] staff would need to arrange for this if Mj is stable enough to go home. He appears no better today, his oxygen is back up to 15 L and he is using some accessory muscles to breathe. He reported he is not sleeping well due to noise in the unit. I will check with him tomorrow to see if he has progressed at all. 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
[2020-09-02 20:00] VITALS: BP 94/67
[2020-09-02] MEDS: MIRTAZAPINE 15 MG TAB PO SCH (20:04)
[2020-09-02] MEDS: KETOROLAC 30 MG/ML 1ML VIAL IV SCH (20:06)
[2020-09-03] VITALS (12 sets, daily range): BP systolic 90–114; BP diastolic 59–79
[2020-09-03] MEDS: PIPERACILLIN/TAZOBACTAM SOD 3.375 GM in D5W MINI-BAG PLUS 50 ML IV SCH ×5 (00:14→23:04)
[2020-09-03] MEDS: VANCOMYCIN HCL 750 MG, VIAL MATE ADAPTER 1 EACH in NS 250 ML IV SCH ×3 (01:23→17:36)
[2020-09-03] MEDS: KETOROLAC 30 MG/ML 1ML VIAL IV SCH ×2 (01:23→05:56)
[2020-09-03 04:40] LABS: HEMATOCRIT 39.4 % (42.0-52.0); HEMOGLOBIN 13.1 g/dl (13.5-17.5); MEAN CORPUSCULAR HEMOGLOBIN 31.9 pg (27.0-33.0); MEAN CORPUSCULAR HGB CONC 33.2 g/dl (32.0-36.5); MEAN CORPUSCULAR VOLUME 95.9 fl (80.0-96.0); RED BLOOD COUNT 4.11 10^6/uL (4.30-6.10); WHITE BLOOD COUNT 12.3 10^3/uL (4.0-10.0)
[2020-09-03 04:41] LABS: PLATELET COUNT, AUTOMATED 223 10^3/uL (150-450)
[2020-09-03 04:48] LABS: ANISOCYTOSIS 1+; ATYPICAL LYMPH 2 % (0-5); LYMPHOCYTES 7 % (16-44); MONOCYTES 1 % (0-5); NEUTROPHILS 89 % (28-66); PLATELET CLUMPS SMALL AMT; PLATELET ESTIMATE NORMAL (NORMAL); POIKILOCYTOSIS 1+; POLYCHROMASIA 1+; TOXIC GRANULATION 1+
[2020-09-03 05:00] LABS: ALT/SGPT 29 U/L (12-78); BILIRUBIN,TOTAL 0.5 MG/DL (0.2-1.0); BLOOD UREA NITROGEN 22 MG/DL (7-18); CALCIUM LEVEL 7.8 MG/DL (8.8-10.2); CARBON DIOXIDE LEVEL 28 MEQ/L (21-32); CHLORIDE LEVEL 103 MEQ/L (98-107); CREATININE FOR GFR 0.43 MG/DL (0.70-1.30); GLOMERULAR FILTRATION RATE > 60.0 (>49); GLUCOSE, FASTING 83 MG/DL (70-100); MAGNESIUM LEVEL 2.3 MG/DL (1.8-2.4); POTASSIUM SERUM 4.4 MEQ/L (3.5-5.1); SODIUM LEVEL 135 MEQ/L (136-145); TOTAL PROTEIN 4.9 GM/DL (6.4-8.2)
[2020-09-03] MEDS: METOPROLOL TART 50 MG TAB PO SCH (05:54)
[2020-09-03] MEDS: PERCOCET 5MG/325MG TAB PO PRN (05:55)
[2020-09-03] MEDS: TIOTROPIUM INHALER/CAPSULE (SPIRIVA) INH SCH (07:24)
[2020-09-03] MEDS: IPRATROPIUM 0.5MG/ALBUTEROL 2.5MG INH SOL UD 3ML (DUONEB) NEB SCH ×4 (07:25→19:27)
[2020-09-03] MEDS: SYMBICORT 160/4.5MCG INHALER 6GM INH SCH ×2 (07:25→19:27)
--- NOTE | 2020-09-03 08:37 | REP ---
INDICATION: eval chest tube pnthx. COMPARISON: Multiple the latest 09/02/2020 also portable. TECHNIQUE: Portable. The technique utilized in obtaining the radiograph has magnified the cardiac silhouette and attenuated the interstitial markings. FINDINGS: The right lower lobe air density is unchanged. The right-sided pneumothorax is unchanged. There is a more dense opacity in the right upper lobe. The right-sided thoracotomy tube is unchanged. Right-sided subcutaneous emphysema is unchanged. The cardiomediastinal silhouette is unchanged. There is no significant change in appearance of the osseous structures. IMPRESSION: 1. Right upper lobe dense opacity as described above. Re-expansion pulmonary edema or possible pneumonia. 2. No other significant changes as described above. <Electronically signed by Floyd Headley > 09/03/20 [id number]
[2020-09-03] MEDS: SODIUM CHLORIDE 1 GM TAB PO SCH (09:00)
[2020-09-03] MEDS: MULTIVITAMINS/MINERALS THERAP 1 TAB PO SCH (09:00)
[2020-09-03] MEDS: DOCUSATE SODIUM 100MG CAPSULE PO SCH ×2 (09:00→20:42)
[2020-09-03] MEDS: ENOXAPARIN 30MG/0.3ML SYRINGE (J1650 PER 10MG) SC SCH (09:00)
[2020-09-03] MEDS: SUCRALFATE SUSP 1GM/10ML UD PO SCH ×4 (09:00→20:41)
[2020-09-03] MEDS: PANTOPRAZOLE 40MG TAB (PROTONIX) PO SCH (09:00)
[2020-09-03] MEDS: predniSONE 10 MG TAB PO SCH (09:00)
[2020-09-03] MEDS: DIGOXIN 0.125 MG TAB PO SCH (09:00)
[2020-09-03] MEDS: MOM 30ML SUSPENSION UDC PO SCH (09:00)
--- NOTE | 2020-09-03 11:35 | IPNPDOC ---
Text Note Date of Service The patient was seen on 09/03/20. NOTE Subjective: Patient stated that he continues to have fatigue and intermittent cough. He stated that he developed some cough when he tried to swallow water. Objective: GENERAL APPEARANCE: Cachectic ill looking male HEENT: no scleral icterus, no JVD, EOMI CARDIOVASCULAR: S1-S2 LUNGS: Coarse lung sounds bilaterally, right chest tube in place, serosanguineous discharge with pus in drain, anterior chest tube in place ABDOMEN: soft & not tender w palpitation MUSCULOSKELETAL: no cyanosis, no swelling INTEGUMENT: no generalized pallor NEUROLOGICAL: cranial nerve function from 2-12 intact intact, follows commands, speech not dysarthric ASSESSMENT: 65 year old male with PMHx of stage IIIB non small cell lung CA, recurrent pneumonia, COPD, anxiety, and radiation induced esophagitis who presented to the ED after 6 days worsening cough and shortness of breath found to have right pneumothorax on CXR admitted for chest tube placement and further management Right pneumothorax/lung empyema/acute hypoxemic respiratory failure Pulmonology team placed a right chest tube on 08/29/20 Pleural fluid culture shows streptococcal bacteria, streptococcus mitis, streptococcus oralis, and strep anginosus. Pleural fluid showed pH 7.1 with wbc>86K. Most likely patient developed right empyema Prognosis guarded. CT was done and showed worsened lung majano with moderate sides of right pneumothorax Pulmonology team follows him Hyperkalemia Resolved Atrial fibrillation with rapid ventricular rate Most likely secondary to respiratory distress superimposed with pulmonary hypertension Patient received loading dose of digoxin, continue metoprolol 50 mg every 8 hours. We'll continue to monitor heart rate. 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 Mcgraw, last dose 08/24/20 Prognosis remains poor Palliative care on board. 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 COPD continue home inhalers, prn nebs Radiation esophagitis continue home Carafate and PPI Hx alcohol abuse with possible recent use no current signs of withdrawal Anxiety continue home mirtazapine Palliative care encounter Palliative care on board VS,Shellie, I+O VS, Shellie, I+O Laboratory Tests 09/03/20 04:15 Vital Signs Date Time Temp Pulse Resp B/P (MAP) Pulse Ox O2 Delivery O2 Flow Rate FiO2 09/03/20 07:27 23 09/03/20 05:54 123 109/66 09/03/20 04:00 14.0 09/03/20 04:00 98.0 91 High Flow Cannula 08/31/20 20:00 40 I&O- Last 24 Hours up to 6 AM 09/03/20 06:00 Intake Total 1290 ml Output Total 2120 ml Balance -830 ml TRACEY DIAS DO September 03, 2020 11:35
--- NOTE | 2020-09-03 11:56 | CCN ---
CRITICAL CARE NOTE DATE: 09/03/2020 SUBJECTIVE: The patient was seen and examined this morning during bedside rounds. The patient was afebrile overnight, his T-max was only 99.4. This morning, the patient states symptomatically he is relatively unchanged. He does continue to have some pain in his chest tube site particularly with some coughing but it is relieved with his pain medication. Patient does continue to have cough which he is occasionally able to expectorate some thick brown mucous. He does note, however after he eats and drinks that he will start to have increasing cough and coughing fits at times which will make him short of breath. He reports a poor appetite, some of which is because of his shortness of breath and dyspnea, and other is because he generally just does not feel that he has much of an appetite. Patient has previously had issues with dysphagia and aspiration particularly after his radiation treatment although that had improved previously. Today, while the patient was attempting to drink his Ensure he did start coughing afterwards and appeared to have coughed up mucous that did have some evidence of pink Ensure in it as well. Patient's right sided chest tube continues to have very significant air leak noted. He does continue to have some subcutaneous emphysema although does not appear to be significantly worsened. Patient continues to require 15 liters nasal cannula high flow and he does desat with coughing episodes and with movement. OBJECTIVE: VITAL SIGNS: Temperature 98, T-max was 99.4, pulse was 96 to 123, respirations 22 to 26, blood pressure 109/66, O2 sat 91% on 15 liters nasal cannula. INPUT AND OUTPUT: In 1.6 liters, out 1.8 liters, net negative 170 ml. GENERAL: Patient is a thin male with some temporal wasting, is lying in bed and appears comfortable when resting but does have some tachypnea and respiratory distress after coughing. HEENT: Normocephalic, atraumatic. Pupils reactive to light bilaterally. Moist mucous membranes. Tongue has brownish discoloration. There is no erythema in the oropharynx. NECK: Supple. Trachea is midline. No palpable cervical lymphadenopathy. CARDIAC: Regular rate and rhythm. Normal S1 and S2 with no appreciable murmurs. PULMONARY: There is transmitted tube air leak sounds on the right with pleural rub and some crepitus from subcutaneous emphysema. There are diminished breath sounds on the left with some occasional rhonchi. There is no wheezing noted. ABDOMEN: Soft, nontender and nondistended. No masses palpated. EXTREMITIES: There is no significant lower extremity noted bilaterally. There is no clubbing or his fingers. LABORATORY DATA: WBC 12.3, hemoglobin 13.1, platelets are 223,000. Chemistries: Sodium is 135, potassium is 4.4, chloride 103, bicarbonate 28, BUN 22, creatinine 0.43, glucose is 83, alkaline phosphatase is 129, AST and ALT 31 and 29, albumin is 1.0. Pleural fluid culture had previously grown multiple Strep species some of which were very resistant. There is also yeast and now actinomyces in his pleural fluid culture. Chest x-ray this morning shows small right apical pneumothorax, unchanged from previous. There is also some subcutaneous emphysema in the right chest laterally which is unchanged. The right sided chest tube is in position which is unchanged. There is increased interstitial markings diffusely in the bilateral lungs with an increased area of opacity noted today in the right upper lobe when compared to the previous chest x-ray yesterday. ASSESSMENT AND PLAN: Mr. Morse is a 75-year-old male with a past medical history of Stage IIIB non-small cell lung cancer on the right status post chemo/RT, history of COPD, radiation induced esophagitis, atrial fibrillation, who presented with worsening cough and shortness of breath. The patient was found to have right sided pneumothorax as well as empyema with necrotic pneumonia. There is also likely pneumonitis noted particularly in the left lung secondary to his immunotherapy. 1. Pneumothorax with empyema with pleural fluid cultures growing multidrug resistant streptococcus yeast and actinomyces. Patient is on Vancomycin and Zosyn. Would continue with the Zosyn particularly given the actinomyces and he will likely need very prolonged course of antibiotics. He may also need surgical debridement with the actinomyces due to the issues with the necrosis. Will continue his chest tube to wall suction at -30 as he does continue to have large air leak noted and still a small apical pneumothorax and mild subcutaneous emphysema. The yeast was sent to [facility] for speciation. For now, will start him on Micafungin particularly given the worsening opacity noted on his chest x-ray this morning in the right upper lobe. 2. Pneumonitis, possibly secondary to his immunotherapy. Patient is on prednisone currently at 30 mg daily. Would continue for now at the current dose. He continues to have increased diffuse interstitial markings noted bilaterally including in the left lung. Patient also has acute hypoxemic respiratory failure likely secondary to his pneumonia as well as with his pneumonitis. Will continue with high flow nasal cannula oxygen with the bubble humidifier to continue to maintain the O2 sat above 90%. Will continue with incentive spirometer as well. Continue with nebulized bronchodilators to help with mucous clearance. Continue with prednisone 30 mg daily. If patient has worsening hypoxia, would consider increasing steroids. 3. Aspiration. Patient has a history of dysphagia in the past with some radiation induced esophagitis. He does appear to clinically have some aspiration currently and so we will keep him NPO pending a Speech and Swallow evaluation. Patient also has severe protein malnutrition and reports a significantly decreased appetite. His albumin continues to trend down. Will place a PICC line not only for IV access given his prolonged need for IV antibiotics but also for potential nutritional supplemental with PPN given his protein malnutrition and need for improved nutrition to help with his infection and healing. 4. Code status. He is DNR/DNI. Patient had been seen by Palliative Care and he is willing to try a period of more aggressive management but his ultimate goal would be to return home if possible. We discuss given his complicated nursing requirements that home return may be very difficult for him at this time particularly given his need for long-term IV antibiotics. Total Critical Care time spent not including procedures: Approximately 50 minutes. ADRY
[2020-09-03] MEDS: MICAFUNGIN SODIUM 100 MG in D5W MINI-BAG PLUS 100 ML IV SCH (14:01)
[2020-09-03] MEDS: DIGOXIN INJ 0.5 MG/2 ML AMP (J1160) IV SCH (14:02)
[2020-09-03] MEDS: PANTOPRAZOLE 40MG VIAL (C9113 PER 1) IV SCH (14:04)
[2020-09-03] MEDS: methylPREDNISolone 40MG 1ML VIAL IV SCH ×2 (14:05→20:43)
[2020-09-03] MEDS: MORPHINE 4 MG/ML 1ML VIAL/SYRINGE (J2270) IV PRN ×3 (14:06→23:05)
[2020-09-03] MEDS ORDERED: LIDOCAINE 1% MDV 20ML VIAL As Ordered ONE (14:48)
--- NOTE | 2020-09-03 15:12 | IPNPDOC ---
Text Note Date of Service The patient was seen on 09/03/20. NOTE I saw Mj this afternoon for about 15 minutes although I really could not spe ak with him at all because he was in the midst of a breathing treatment and on the heels of that, the RT team arrived to place a PICC line. He was extremely dyspneic, much worse than he was when I saw him the past two days. HIs daughter, Jessenia and son Mj were in the room and Most of the information I got, was through Jessenia. She indicated he was started on an antifungal and a PICC line was being started for assisted antibiotic therapy, and possibly parenteral nutrition. Jessenia feels this will allow him to receive nutrition without having to work so hard to breathe and allow him to get stronger. Yessterday I had a discussion with Mj about low dose morphine for his dyspnea, however today when I started to follow up on that, Jessenia asked me to stop because he had too much going on and was overwhelmed ( which was completely accurate ). I told her I would discuss with Dr. Gross and when Mj is under less stress if he decides to try a trial of this any of the hospitalists or intensivists could order this for him. Today he appeared much more anxious and dyspneic. He has temporal wasting and is coughing up lung secretions the best he can with his chest tube in place. I will not be back in town until Monday and will follow up with him at that time. VS,Celiae, I+O VS, Mihirbone, I+O Laboratory Tests 09/03/20 04:15 Vital Signs Date Time Temp Pulse Resp B/P (MAP) Pulse Ox O2 Delivery O2 Flow Rate FiO2 09/03/20 14:53 30 09/03/20 14:02 125 09/03/20 05:54 109/66 09/03/20 04:00 14.0 09/03/20 04:00 98.0 91 High Flow Cannula 08/31/20 20:00 40 I&O- Last 24 Hours up to 6 AM 09/03/20 05:59 Intake Total 1240 ml Output Total 1920 ml Balance -680 ml [employer] TECH September 03, 2020 15:12
[2020-09-03] MEDS: SODIUM CHLORIDE NASAL 0.65% SPRAY BTL (OCEAN) SCH ×2 (15:59→20:43)
[2020-09-03] MEDS: METOPROLOL 5 MG/5 ML VIAL IV PRN ×2 (16:07→19:43)
[2020-09-03] MEDS ORDERED: SODIUM CHLORIDE 0.9% INJ 10 ML SYR IV PRN (16:30)
[2020-09-03] MEDS: SODIUM CHLORIDE 0.9% INJ 10 ML SYR IV SCH (17:38)
[2020-09-03] MEDS: HumaLOG INSULIN (NovoLOG) PER UNIT SC SCH ×2 (17:44→23:05)
[2020-09-03] MEDS ORDERED: FAT EMULSION IV 20% 500 ML IV SCH (18:00)
[2020-09-03] MEDS: AMINO AC/ELECTROLYTE/DEX/CALC 1,000 ML IV SCH (18:30)
--- NOTE | 2020-09-03 20:06 | REP ---
INDICATION: SOB; Tachyarrhythmia. COMPARISON: Today at 8:19 a.m. TECHNIQUE: Portable FINDINGS: The technique utilized in obtaining the radiograph has magnified the cardiac silhouette and accentuated the interstitial markings. The cardiomediastinal silhouette lung majano are unchanged. The right upper lobe dense opacity is unchanged. Other patchy interstitial and airspace opacities are seen diffusely throughout the lung majano status quo. There are no new abnormal opacities. The right-sided pneumothorax is essentially unchanged as is the right-sided thoracotomy tube. The degree of subcutaneous emphysema on the right is also stable. Since the last examination a left-sided subclavian central venous catheter has been placed the tip of which is in the superior vena cava. There is no change in the osseous structures. IMPRESSION: No significant change other than recent placement of a left-sided subclavian central venous catheter as described above. <Electronically signed by Floyd Headley > 09/03/202002
[2020-09-03] MEDS: NORCO, ANEXSIA 5/325MG TABLET (HYDROcodone/ACETAMINOPHEN) PO PRN (20:42)
[2020-09-03] MEDS: MIRTAZAPINE 15 MG TAB PO SCH (20:42)
[2020-09-04] VITALS (18 sets, daily range): BP systolic 96–125; BP diastolic 67–86; O2SAT 88
[2020-09-04] MEDS: VANCOMYCIN HCL 750 MG, VIAL MATE ADAPTER 1 EACH in NS 250 ML IV SCH (00:59)
[2020-09-04] MEDS: PERCOCET 5MG/325MG TAB PO PRN (01:53)
[2020-09-04] MEDS: methylPREDNISolone 40MG 1ML VIAL IV SCH ×3 (05:17→20:01)
[2020-09-04] MEDS: PIPERACILLIN/TAZOBACTAM SOD 3.375 GM in D5W MINI-BAG PLUS 50 ML IV SCH ×4 (05:18→23:51)
[2020-09-04] MEDS: SODIUM CHLORIDE 0.9% INJ 10 ML SYR IV SCH ×2 (05:18→17:35)
[2020-09-04 05:26] LABS: HEMATOCRIT 36.8 % (42.0-52.0); HEMOGLOBIN 12.2 g/dl (13.5-17.5); MEAN CORPUSCULAR HEMOGLOBIN 31.6 pg (27.0-33.0); MEAN CORPUSCULAR HGB CONC 33.2 g/dl (32.0-36.5); MEAN CORPUSCULAR VOLUME 95.3 fl (80.0-96.0); PLATELET COUNT, AUTOMATED 199 10^3/uL (150-450); RED BLOOD COUNT 3.86 10^6/uL (4.30-6.10); WHITE BLOOD COUNT 20.9 10^3/uL (4.0-10.0)
[2020-09-04] MEDS: HumaLOG INSULIN (NovoLOG) PER UNIT SC SCH ×3 (05:32→18:05)
[2020-09-04] MEDS: MORPHINE 4 MG/ML 1ML VIAL/SYRINGE (J2270) IV PRN ×4 (05:36→18:48)
[2020-09-04 05:43] LABS: MONOCYTES 1 % (0-5); NEUTROPHILS 98 % (28-66); PLATELET ESTIMATE NORMAL (NORMAL); TOXIC VACUOLATION 1+
[2020-09-04 05:52] LABS: ALBUMIN 1.1 GM/DL (3.2-5.2); ALT/SGPT 21 U/L (12-78); BILIRUBIN,TOTAL 0.3 MG/DL (0.2-1.0); BLOOD UREA NITROGEN 25 MG/DL (7-18); CALCIUM LEVEL 7.9 MG/DL (8.8-10.2); CARBON DIOXIDE LEVEL 30 MEQ/L (21-32); CHLORIDE LEVEL 104 MEQ/L (98-107); GLOMERULAR FILTRATION RATE > 60.0 (>49); GLUCOSE, FASTING 132 MG/DL (70-100); MAGNESIUM LEVEL 2.3 MG/DL (1.8-2.4); POTASSIUM SERUM 4.6 MEQ/L (3.5-5.1); SODIUM LEVEL 140 MEQ/L (136-145); TOTAL PROTEIN 4.4 GM/DL (6.4-8.2)
[2020-09-04] MEDS: TIOTROPIUM INHALER/CAPSULE (SPIRIVA) INH SCH (07:42)
[2020-09-04] MEDS: SYMBICORT 160/4.5MCG INHALER 6GM INH SCH ×2 (07:42→19:33)
[2020-09-04] MEDS: IPRATROPIUM 0.5MG/ALBUTEROL 2.5MG INH SOL UD 3ML (DUONEB) NEB SCH ×2 (07:44→13:02)
[2020-09-04] MEDS: MOM 30ML SUSPENSION UDC PO SCH (08:22)
--- NOTE | 2020-09-04 08:24 | REP ---
INDICATION: pneumothorax. COMPARISON: 09/03/2020. TECHNIQUE: Single portable AP view of the chest was performed. FINDINGS: Diffuse bilateral infiltrates are unchanged. Small right pneumothorax is unchanged. There is a right chest tube and left PICC line unchanged in position. Heart and mediastinum appear unchanged. IMPRESSION: Stable exam. <Electronically signed by Mata Titus > 09/04/20 [id number]
[2020-09-04] MEDS: ENOXAPARIN 30MG/0.3ML SYRINGE (J1650 PER 10MG) SC SCH (09:42)
[2020-09-04] MEDS: PANTOPRAZOLE 40MG VIAL (C9113 PER 1) IV SCH (09:44)
[2020-09-04] MEDS: DIGOXIN INJ 0.5 MG/2 ML AMP (J1160) IV SCH (09:44)
[2020-09-04] MEDS: SODIUM CHLORIDE NASAL 0.65% SPRAY BTL (OCEAN) SCH ×2 (09:45→20:01)
[2020-09-04] MEDS: VANCOMYCIN HCL 1,000 MG, VIAL MATE ADAPTER 1 EACH in NS 250 ML IV SCH ×2 (09:45→16:25)
--- NOTE | 2020-09-04 11:47 | IPNPDOC ---
Text Note Date of Service The patient was seen on 09/04/20. NOTE Subjective: Patient stated that his breathing is not improving. He complains of fatigue. Patient developed severe oropharyngeal dysfunction required nothing by mouth. Overnight patient developed atrial fibrillation with rapid ventricular rate, he received Lopressor IV, heart rate was controlled Objective: GENERAL APPEARANCE: Cachectic ill looking male HEENT: no scleral icterus, no JVD, EOMI CARDIOVASCULAR: S1-S2 LUNGS: Coarse lung sounds bilaterally, right chest tube in place, serosanguineous discharge with pus in drain, anterior chest tube in place ABDOMEN: soft & not tender w palpitation MUSCULOSKELETAL: no cyanosis, no swelling INTEGUMENT: no generalized pallor NEUROLOGICAL: cranial nerve function from 2-12 intact intact, follows commands, speech not dysarthric ASSESSMENT: 65 year old male with PMHx of stage IIIB non small cell lung CA, recurrent pneumonia, COPD, anxiety, and radiation induced esophagitis who presented to the ED after 6 days worsening cough and shortness of breath found to have right pneumothorax on CXR admitted for chest tube placement and further management Right pneumothorax/lung empyema/acute hypoxemic respiratory failure/dyspnea Pulmonology team placed a right chest tube on 08/29/20 Pleural fluid culture shows streptococcal bacteria, streptococcus mitis, streptococcus oralis, and strep anginosus, actinomyces and breanne albicans Pleural fluid showed pH 7.1 with [id number]>[id number]. Most likely patient developed right empyema Prognosis guarded. CT was done and showed worsened lung majano with moderate sides of right pneumothorax Pulmonology team started micafungin due to worsening opacities despite of antibiotic therapy Most likely patient will need surgical debridement of right lung Pain management Hyperkalemia Resolved Oropharyngeal dysfunction Continue PPN Continue nothing by mouth Atrial fibrillation with rapid ventricular rate Most likely secondary to respiratory distress superimposed with pulmonary hypertension Continue IV Lopressor, IV digoxin I will not start anticoagulation due to right-sided chest tube and high risk of bleed Lung empyema Superimposed with radiation pneumonitis Patient severely immune compromised secondary to advanced malignancy and immunotherapy blood culture negative Continue broad-spectrum antibiotics with vancomycin and Zosyn day 6 Continue IV steroids Stage IIIB non-small cell lung carcinoma (squamous cell) s/p chemo and radiation currently on durvalumab immunotherapy per Dr. Mcgraw, last dose 08/24/20 Prognosis remains poor Palliative care on board. 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 COPD continue home inhalers, prn nebs Radiation esophagitis continue home Carafate and PPI Hx alcohol abuse with possible recent use no current signs of withdrawal Anxiety continue home mirtazapine Palliative care encounter Palliative care on board VS,Fishbone, I+O VS, Fishbone, I+O Laboratory Tests 09/04/20 05:14 Vital Signs Date Time Temp Pulse Resp B/P (MAP) Pulse Ox O2 Delivery O2 Flow Rate FiO2 09/04/20 10:30 27 09/04/20 10:00 102 117/76 (90) 93 HVNI-Vapotherm 25.0 100 09/04/20 08:00 99.4 I&O- Last 24 Hours up to 6 AM 09/04/20 06:00 Intake Total 1390 ml Output Total 1390 ml Balance 0 ml TRACEY DIAS DO September 04, 2020 11:47
[2020-09-04] MEDS: MICAFUNGIN SODIUM 100 MG in D5W MINI-BAG PLUS 100 ML IV SCH (13:28)
[2020-09-04] MEDS: SODIUM CHLORIDE HYPERTONIC 3% 15ML NEB SOL INH SCH ×2 (14:11→19:32)
[2020-09-04] MEDS: ALBUTEROL SULFATE 2.5 MG/0.5 ML INH NEB SOLN NEB SCH ×2 (14:11→19:32)
--- NOTE | 2020-09-04 15:03 | CCN ---
CRITICAL CARE NOTE DATE: 09/04/2020 SUBJECTIVE: Patient was seen and examined this morning during bedside rounds. Yesterday, patient was noted to have persistent episodes of desaturation despite being on the high-flow nasal cannula at 15 liters/min. He was also reporting an increased nasal congestion, although that did improve with saline nasal spray. He was placed on Vapotherm at 100% FiO2 with attempts to limit the flow rates to 30 liters/min or less. Overnight, he did require placement of a nonrebreather on top of the Vapotherm, as he was mouth breathing throughout the night while sleeping. Patient did also have episode of atrial fibrillation with rapid ventricular response, which appears when he has increased respiratory distress as well as hypoxia. He does continue to report chest pain and discomfort on the right side of the chest and he does continue to report cough with occasional productive mucus. Patient does report difficulty at times in his ability expectorating his mucus. He did have the speech and swallow evaluation yesterday and he was placed nothing by mouth (NPO) as he had failed the swallow evaluation. He did have his peripherally inserted central catheter (PICC) line placed as well yesterday and he was started on peripheral parenteral nutrition (PPN). Patient did not have any fevers noted overnight. OBJECTIVE: Temperature 98.0, pulse 99, respirations 25, blood pressure 118/76, oxygen saturation 91% on 25 liters/min at 100% FiO2. INTAKE AND OUTPUT: In 1.1 liters, out 1.6 liters, net negative 485 mL. GENERAL: Patient is a thin male with cachexia who is lying in bed. He appears comfortable when resting, but does have some tachypnea and respiratory distress after coughing. HEENT: Normocephalic, atraumatic. Pupils react to light bilaterally. Moist mucous membranes. Tongue has brownish discoloration. Neck is supple. Trachea is midline. No palpable cervical adenopathy. CARDIAC: Occasionally tachycardic, but regular rate and rhythm. Normal S1, S2. No appreciable murmurs. PULMONARY: There are transmuted tube air leak sounds on the right with some crepitus from subcutaneous emphysema, which is unchanged. There are occasional rhonchi noted with generalized diminished breath sounds, but no significant wheezing. There is an air leak noted in the right chest tube, but appears somewhat less brisk than previous. ABDOMEN: Soft, nontender, nondistended. No masses palpated. EXTREMITIES: There is no significant lower extremity edema noted bilaterally. There is no clubbing. LABORATORY STUDIES: WBC 20.9, hemoglobin 12.2, platelets 199. Chemistry: Sodium 140, potassium 4.6, chloride 104, bicarbonate 30, BUN 25, creatinine 0.40, glucose 132. Albumin is 1.1. Chest x-ray shows small right apical pneumothorax unchanged. There is some subcutaneous emphysema on the right side laterally which appears mildly improved. There is mild improvement in the right upper lobe opacity, but there are otherwise increased interstitial markings noted bilaterally, which are unchanged. ASSESSMENT AND PLAN: Mr. Morse is a 74-year-old male with a past medical history of stage 3B non-small cell lung cancer on the right status post chemotherapy/radiation therapy, history of chronic obstructive pulmonary disease (COPD), history of radiation induced esophagitis, atrial fibrillation, who presented with worsening cough and shortness of breath. Patient was found on admission to have a right-sided pneumothorax as well as empyema with necrotic pneumonia. Patient also likely with pneumonitis secondary to immunotherapy, particularly noted in his left lung. 1. Pneumothorax with empyema with pleural fluid cultures growing multidrug resistant Streptococcus, yeast and actinomyces. 1a. Will continue patient on vancomycin and Zosyn for broad spectrum antibiotics. He was also added micafungin given the yeast noted in the pleural fluid cultures with the final speciation from [facility] ([facility] still pending. 1b. Given the actinomyces in particular, patient would need a very prolonged course of antibiotics with questionable need for surgical debridement. 1c. Will continue chest tube to wall suction at -30 cm H2O. He does continue to have air leak noted, although somewhat less brisk than yesterday. There is still a residual apical pneumothorax noted on the right and some mild subcutaneous emphysema. 1d. Will continue patient with pain control with morphine as needed. We will ensure he has a suppository as needed for bowel regimen while he is on opioids. 2. Pneumonitis, possibly secondary to immunotherapy. 2a. Patient was changed to Solu-Medrol 20 mg every 8 hours. Will continue Solu-Medrol for now. 2b. He does have acute hypoxemic respiratory failure secondary to his pneumonia as well as his pneumonitis. He is on Vapotherm currently with a nonrebreather as needed, particularly when he is sleeping and mouth breathing. We will continue to wean down his FiO2 as tolerated; however, we are attempting to limit his flow rates to less than 30 liters/min given concern for positive pressure with his pneumothorax. 2c. Will continue incentive spirometer. 2d. Patient does have productive cough and mucus, which is somewhat difficult for him to expectorate. We will start him on hypertonic saline nebulized bronchodilators with his albuterol and with an Acapella device as well to help him with his clearance. 3. Aspiration with history of dysphagia. Patient had failed his speech and swallow evaluation yesterday and he is strict nothing by mouth (NPO) currently. 3a. His peripherally inserted central catheter (PICC) line was placed yesterday and he was started on peripheral parenteral nutrition (PPN). We will change him to total parenteral nutrition (TPN) with the central line access now. He does have severe protein malnutrition and hypoalbuminemia. 3b. Would change the rest of his oral medications to intravenous (IV) where needed. CODE STATUS: DO NOT RESUSCITATE (DNR)/DO NOT INTUBATE (DNI). TOTAL CRITICAL CARE TIME SPENT NOT INCLUDING ANY PROCEDURES: Approximately 40 minutes. ADRY
[2020-09-04] MEDS: AMINO AC/ELECTROLYTE/DEX/CALC 1,000 ML IV SCH (15:07)
--- NOTE | 2020-09-04 17:28 | REP ---
PROCEDURE NAME: PICC LINE INSERTION W/SITERITE CLINICAL INFORMATION: Long-term antibiotic tx, nutrition. COMPARISON: None. PROCEDURE DESCRIPTION: The procedure was performed by TRIP Craft, under the direct supervision of Dr. Titus. The risks and benefits of the procedure were explained to the patient and an informed consent was obtained both verbally and written. Directly prior to the start of the procedure a formal time-out was completed in the procedure room. The left medial brachial vein was localized using ultrasound guidance. The skin was prepped and draped in sterile fashion. Three mL of 1% lidocaine 10 mg/mL was used as a local anesthetic. Using ultrasound guidance the left medial brachial vein was cannulated, and a 0.018 guidewire was inserted and advanced to the level of SVC using fluoroscopic guidance. The needle was removed and a 5.5 Sudanese dilator and peel-away sheath was inserted over the guidewire. A 5.5 Sudanese dual lumen catheter was cut to a length of 45 cm. The dilator was removed and the catheter was inserted over the guidewire with the tip ending at the level of the SVC. The peel-away sheath was removed and the catheter was flushed with heparinized saline as per hospital protocol. The catheter was affixed to the skin and a sterile dressing was applied. The patient tolerated the procedure well and there were no immediate complications. CONCLUSION: PICC line insertion into the left medial brachial vein. No fluoroscopy time was utilized for this procedure. All imaging was obtained with serial portable chest x-rays. <Electronically signed by Trang Mendieta > 09/03/20 [id number] <Electronically signed by Mata Titus > 09/04/20 [id number]
[2020-09-04] MEDS ORDERED: FAT EMULSION IV 20% 500 ML IV SCH (18:00)
[2020-09-04] MEDS ORDERED: MULTIVITAMIN -ADULT INJECTION 10 ML, CR/CU/SE/MN/ZN INJ 1 ML in AMINO AC/ELECTROLYTE/DE... IV SCH (18:00)
[2020-09-04] MEDS: METOPROLOL 5 MG/5 ML VIAL IV PRN (19:45)
[2020-09-04] MEDS: MORPHINE 2 MG/ML 1ML VIAL (J2270) IV PRN (19:46)
[2020-09-05] VITALS (17 sets, daily range): BP systolic 109–137; BP diastolic 71–89
[2020-09-05] MEDS: HumaLOG INSULIN (NovoLOG) PER UNIT SC SCH ×5 (00:04→23:59)
[2020-09-05] MEDS: MORPHINE 4 MG/ML 1ML VIAL/SYRINGE (J2270) IV PRN ×5 (00:05→20:40)
[2020-09-05] MEDS: VANCOMYCIN HCL 1,000 MG, VIAL MATE ADAPTER 1 EACH in NS 250 ML IV SCH ×3 (01:31→16:54)
[2020-09-05] MEDS: SODIUM CHLORIDE HYPERTONIC 3% 15ML NEB SOL INH SCH ×4 (02:21→19:30)
[2020-09-05] MEDS: ALBUTEROL SULFATE 2.5 MG/0.5 ML INH NEB SOLN NEB SCH ×4 (02:21→19:30)
[2020-09-05] MEDS: PIPERACILLIN/TAZOBACTAM SOD 3.375 GM in D5W MINI-BAG PLUS 50 ML IV SCH ×4 (05:38→23:58)
[2020-09-05] MEDS: methylPREDNISolone 40MG 1ML VIAL IV SCH ×3 (05:38→20:40)
[2020-09-05] MEDS: SODIUM CHLORIDE 0.9% INJ 10 ML SYR IV SCH ×2 (05:39→18:00)
[2020-09-05 06:29] LABS: HEMATOCRIT 34.8 % (42.0-52.0); HEMOGLOBIN 11.4 g/dl (13.5-17.5); MEAN CORPUSCULAR HEMOGLOBIN 31.8 pg (27.0-33.0); MEAN CORPUSCULAR HGB CONC 32.8 g/dl (32.0-36.5); MEAN CORPUSCULAR VOLUME 96.9 fl (80.0-96.0); RED BLOOD COUNT 3.59 10^6/uL (4.30-6.10); WHITE BLOOD COUNT 17.8 10^3/uL (4.0-10.0)
[2020-09-05 06:54] LABS: ALBUMIN 1.1 GM/DL (3.2-5.2); ALT/SGPT 16 U/L (12-78); BILIRUBIN,TOTAL 0.2 MG/DL (0.2-1.0); BLOOD UREA NITROGEN 25 MG/DL (7-18); CALCIUM LEVEL 8.2 MG/DL (8.8-10.2); CARBON DIOXIDE LEVEL 31 MEQ/L (21-32); CHLORIDE LEVEL 104 MEQ/L (98-107); CREATININE FOR GFR 0.39 MG/DL (0.70-1.30); GLOMERULAR FILTRATION RATE > 60.0 (>49); GLUCOSE, FASTING 135 MG/DL (70-100); LYMPHOCYTES 1 % (16-44); MAGNESIUM LEVEL 2.2 MG/DL (1.8-2.4); METAMYELOCYTES 1 % (0-0); MONOCYTES 2 % (0-5); NEUTROPHILS 91 % (28-66); POTASSIUM SERUM 4.4 MEQ/L (3.5-5.1); SODIUM LEVEL 140 MEQ/L (136-145)
[2020-09-05 06:56] LABS: PLATELET ESTIMATE DECREASED (NORMAL)
[2020-09-05 06:57] LABS: PLATELET COUNT, AUTOMATED 95 10^3/uL (150-450)
[2020-09-05] MEDS: SYMBICORT 160/4.5MCG INHALER 6GM INH SCH ×2 (07:45→19:31)
[2020-09-05] MEDS: TIOTROPIUM INHALER/CAPSULE (SPIRIVA) INH SCH (07:45)
[2020-09-05] MEDS: MORPHINE 2 MG/ML 1ML VIAL (J2270) IV PRN ×3 (08:02→23:59)
[2020-09-05] MEDS: MOM 30ML SUSPENSION UDC PO SCH (08:06)
--- NOTE | 2020-09-05 08:27 | IPNPDOC ---
Text Note Date of Service The patient was seen on 09/05/20. NOTE Hospitalist Progress Note Subjective: Pleasant 65-year-old male. He does seem to understand the gravity of the situation. I did discuss with him, and he does continue to wish to be DNR/DNI. He reports that his pain is currently controlled this time, but he does continue to have significant shortness of breath Objective: General: Awake, alert, oriented 3. HEENT: Head normocephalic, atraumatic, sclera are nonicteric. Hearing is grossly intact to conversation. Currently wearing a nonrebreather. Respiratory: Right side has a significant amount of gurgling/crackling due to the presence of the chest tubes. The left side also has some crackles throughout all majano. Cardiovascular: Difficult to auscultate due to all the other adventitious noises from his lungs Abdomen: Soft, nontender, nondistended, no hepatosplenomegaly appreciated. Bowel sounds present. Extremities: 2+ pulses in the radial and dorsalis pedis bilaterally. No evidence of clubbing or cyanosis. Assessment: -Right-sided pneumothorax -Empyema -Necrotic pneumonia -Pneumonitis -Acute hypoxemic respiratory failure -COPD -Stage IIIB non-small cell cancer on the right status post chemotherapy/radiation Continue vancomycin, Zosyn, and micafungin, Solu-Medrol. Pain control with morphine. Chest tube anteriorly continue to be in place. He also continues to require Vapotherm and nonrebreather PRN. It appears the patient may likely need surgical debridement of the right lung for treatment of infection, and perhaps pleurodesis due to chronic air leak, will defer these decisions to Cardiothoracic Surgery. Input on this very complicated case from both Pulm/Critical Care & Cardiothoracic Surgery is greatly appreciated. Thrombocytopenia -Large drop in platelets noted, HIT suspected, antibodies have been ordered. d/c heparin & lovenox for now. -Radiation-induced esophagitis -Aspiration and dysphagia -Severe protein calorie malnutrition -Hypoalbuminemia -Cachexia Failed speech swallow evaluation, continue with nothing by mouth diet & TPN -Atrial fibrillation Continue IV Lopressor and digoxin Hold anticoagulation due to right-sided chest tube and high risk of bleeding -Hyperkalemia, resolved -History of alcohol abuse, no signs of trauma -Anxiety, continue home dose of mirtazapine Disposition: Continues to be DNR/DNI. Prognosis continues to be guarded VS,Fishbone, I+O VS, Fishbone, I+O Laboratory Tests 09/05/20 05:43 Vital Signs Date Time Temp Pulse Resp B/P (MAP) Pulse Ox O2 Delivery O2 Flow Rate FiO2 09/05/20 08:02 24 09/05/20 08:00 98.8 108 126/86 (99) 88 HVNI-Vapotherm 25.0 100 I&O- Last 24 Hours up to 6 AM 09/05/20 06:00 Intake Total 3065 ml Output Total 1825 ml Balance 1240 ml MARIA ESTHER JACQUES DO September 05, 2020 08:16
--- NOTE | 2020-09-05 08:48 | REP ---
INDICATION: chest tube. COMPARISON: 09/04/2020. TECHNIQUE: Single portable AP view of the chest was performed. FINDINGS: Right chest remains in place. Small right pneumothorax is unchanged. Diffuse bilateral infiltrates are unchanged. Heart and mediastinum are unchanged. There is again a left arm PICC line, the tip is in the superior vena cava. IMPRESSION: Stable exam. <Electronically signed by Mata Titus > 09/05/20 0844
[2020-09-05 09:21] LABS: PLATELET COUNT, AUTOMATED 89 10^3/uL (150-450)
[2020-09-05] MEDS: PANTOPRAZOLE 40MG VIAL (C9113 PER 1) IV SCH (10:08)
[2020-09-05] MEDS: DIGOXIN INJ 0.5 MG/2 ML AMP (J1160) IV SCH (10:08)
[2020-09-05] MEDS: SODIUM CHLORIDE NASAL 0.65% SPRAY BTL (OCEAN) SCH ×2 (10:09→20:41)
[2020-09-05] MEDS: ACETYLCYSTEINE 20% 4 ML VIAL (200MG/ML) INH SCH ×2 (12:24→19:32)
--- NOTE | 2020-09-05 13:17 | CCN ---
CRITICAL CARE NOTE DATE: 09/05/2020 SUBJECTIVE: The patient was seen and examined this morning during bedside rounds. Yesterday and overnight the patient remained on Vapotherm with the addition non-rebreather at times as well. He continues to have significant desaturation with minimal exertion including coughing. He does have mucous which he states is somewhat difficult for him to expectorate (1) because of increased pain in his chest with coughing as well as (2) being more winded and short of breath when coughing. He does appear tachypneic even at rest which is worsened after he has his coughing episodes. His mucous is brown and thick in color when he is able to expectorate it. The patient does continue to report pain in the right side of his chest which does get improved with the Morphine that he has ordered p.r.n. OBJECTIVE: PHYSICAL EXAMINATION: VITAL SIGNS: Temperature 98.8, pulse 108, respirations 24, blood pressure 126/56, O2 sat 88% on 25 liters a minute and 100% FiO2. INTAKE AND OUTPUT: In's 2.6 liters, out's 2.1 liters net positive 405 mL. GENERAL APPEARANCE: The patient is a thin male with cachexia who is sitting in bed. He appears to be tachypneic with some increased respiratory distress, particularly after coughing and movement. HEENT: Normocephalic and atraumatic. Pupils are reactive to light bilaterally. Moist mucous membranes noted. NECK: Supple. Trachea is midline. No palpable cervical adenopathy. CARDIAC: Tachycardic with regular rate and rhythm. Normal S1, S2. No appreciable murmurs. PULMONARY: The patient has a large transmitted chest tube air leak sounds on the right. There is some mild subcutaneous emphysema, mostly on the right lower lateral chest which is slightly improved. There are generalized diminished breath sounds on the left with occasional rhonchi but no significant wheezing. There is a very brisk air leak noted on the right chest tube which is increased from yesterday. ABDOMEN: Soft, nontender, nondistended, no masses palpated. EXTREMITIES: No significant lower extremity noted bilaterally. LABORATORY STUDIES: WBC 17.8, hemoglobin 11.4, platelet count 95. Chemistries - sodium is 140, potassium 4.4, chloride is 104, bicarbonate is 31, BUN 5, creatinine is 0.39, glucose is 135. Albumin is 1.1. Microbiology the yeast species was breanne albicans which is sensitive to Micafungin and Orconazole. IMAGING: Chest x-ray this morning shows small right apical pneumothorax, unchanged. There is some subcutaneous emphysema on the right side laterally which is improved. There are unchanged increased interstitial markings noted bilaterally. The previous more dense opacity in the right upper lobe is improved. There is a PICC line in place at the tip of the FEC. ASSESSMENT AND PLAN: The patient is a 74-year-old male with a past medical history of stage 3b non-small cell lung cancer in the right, status post chemo/RT, history of chronic obstructive pulmonary disease, history of radiation induced esophagitis, atrial fibrillation, who presented with worsening cough and shortness of breath. The patient was found on admission to have right sided pneumothorax as well as empyema with necrotic pneumonia. He also had pneumonitis likely secondary to his immunotherapy. 1. Pneumothorax with empyema on the right with pleural fluid cultures growing multidrug resistant staphylococcus, breanne albicans and actinomyces. -The patient is on Vancomycin and Zosyn for broad spectrum antibiotics. He is also on Micafungin. His breanne albicans is sensitive for Micafungin and so will continue for now. -The patient will need a very prolonged course of antibiotics, particularly given the actinomyces. -The patient does continue to have apical pneumothorax on the right and a very brisk air leak noted with wall suction at -30 cm H20. There is some slight improvement in the subcutaneous emphysema on the right chest. With the very brisk air leak he likely will need surgical pleurodesis although given his poor functional status, as well as the very necrotic process in the lung, he may have difficulty with surgery and wound healing as well as given his poor nutritional status. We will follow up Cardiothoracic Surgery next week about his surgical candidacy. -Continue with pain control with Morphine p.r.n. He does suppository to use as needed. He has not had any bowel movements he states for several days but denies any significant abdomen pain. He has not had significant oral intake as well and is currently n.p.o. 2. 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 - As the patient is on Solu-Medrol 20 mg q. 8 hours which I will continue for now. 3. The patient has acute hypoxemic respiratory failure secondary to his pneumonia as well as his pneumonitis. He is on Vapotherm. We have been trying to limit his flow rates given his pneumothorax with conservative positive pressure, but given his ongoing hypoxia, likely will need to increase the flow rates on his Vapotherm. He does also need a non-rebreather at times, particularly as he mouth breathes at night. -Continue with incentive spirometer. 1-Continue with acapella device and we will add Mucomyst with Albuterol in addition to his hypertonic saline for mucous clearance. 4. Aspiration with history of dysphagia. The patient is n.p.o., as he has failed speech and swallow evaluation. -He does have severe protein malnutrition and hypoalbuminemia. He is status post PICC line and is on TPN for nutritional support. 5. Thrombocytopenia - The patient has new onset thrombocytopenia. His platelets have dropped by more than 50% from initial and there is concern as he was receiving Heparin products with Lovenox as well as having flushes with his PICC line for a possible HIT. He is at intermediate risk with the calculation for a T-score. -We will hold his Heparin and Lovenox. We will place him on TEDS SCDs for DVT prophylaxis. We will check the HIT antibody and the serotonin release assay. Code status is DNR/DNI. The patient's prognosis is guarded. We will continue to address with him about goals of care. Total critical care time spent not including procedures approximately 45 minutes. ELLED
[2020-09-05] MEDS: MICAFUNGIN SODIUM 100 MG in D5W MINI-BAG PLUS 100 ML IV SCH (13:57)
[2020-09-05] MEDS ORDERED: AMINO AC/ELECTROLYTE/DEX/CALC 2,000 ML IV SCH (18:00)
[2020-09-05] MEDS ORDERED: FAT EMULSION IV 20% 500 ML IV SCH (18:00)
[2020-09-06] VITALS (7 sets, daily range): BP systolic 136–182; BP diastolic 86–100
[2020-09-06] MEDS: SODIUM CHLORIDE HYPERTONIC 3% 15ML NEB SOL INH SCH ×4 (01:04→19:28)
[2020-09-06] MEDS: ALBUTEROL SULFATE 2.5 MG/0.5 ML INH NEB SOLN NEB SCH ×4 (01:04→19:27)
[2020-09-06] MEDS: VANCOMYCIN HCL 1,000 MG, VIAL MATE ADAPTER 1 EACH in NS 250 ML IV SCH ×3 (01:12→16:51)
[2020-09-06] MEDS: MORPHINE 4 MG/ML 1ML VIAL/SYRINGE (J2270) IV PRN ×6 (05:02→20:36)
[2020-09-06] MEDS: PIPERACILLIN/TAZOBACTAM SOD 3.375 GM in D5W MINI-BAG PLUS 50 ML IV SCH ×3 (05:03→18:20)
[2020-09-06] MEDS: SODIUM CHLORIDE 0.9% INJ 10 ML SYR IV SCH ×2 (05:03→17:29)
[2020-09-06] MEDS: methylPREDNISolone 40MG 1ML VIAL IV SCH ×3 (05:03→20:04)
[2020-09-06] MEDS: HumaLOG INSULIN (NovoLOG) PER UNIT SC SCH ×3 (05:08→17:27)
[2020-09-06] MEDS: ACETYLCYSTEINE 20% 4 ML VIAL (200MG/ML) INH SCH ×2 (07:47→19:27)
[2020-09-06] MEDS: SYMBICORT 160/4.5MCG INHALER 6GM INH SCH ×2 (07:47→19:27)
[2020-09-06] MEDS: TIOTROPIUM INHALER/CAPSULE (SPIRIVA) INH SCH (07:47)
[2020-09-06] MEDS: PANTOPRAZOLE 40MG VIAL (C9113 PER 1) IV SCH (08:14)
[2020-09-06] MEDS: DIGOXIN INJ 0.5 MG/2 ML AMP (J1160) IV SCH (08:15)
[2020-09-06] MEDS: MORPHINE 2 MG/ML 1ML VIAL (J2270) IV PRN (08:17)
[2020-09-06] MEDS: MOM 30ML SUSPENSION UDC PO SCH (08:29)
[2020-09-06 08:42] LABS: HEMATOCRIT 34.8 % (42.0-52.0); MEAN CORPUSCULAR HEMOGLOBIN 36.8 pg (27.0-33.0); MEAN CORPUSCULAR HGB CONC 34.5 g/dl (32.0-36.5); MEAN CORPUSCULAR VOLUME 106.7 fl (80.0-96.0); RED BLOOD COUNT 3.26 10^6/uL (4.30-6.10)
[2020-09-06 08:44] LABS: PLATELET COUNT, AUTOMATED 69 10^3/uL (150-450)
--- NOTE | 2020-09-06 08:46 | REP ---
INDICATION: pneumothorax. COMPARISON: 09/05/2020. TECHNIQUE: Single portable AP view of the chest was performed. FINDINGS: Right chest tube remains in place. Small right pneumothorax is unchanged. Diffuse bilateral infiltrates are unchanged. The heart and mediastinum are unchanged. Left arm PICC line is again noted with tip in the superior vena cava. IMPRESSION: Stable exam. <Electronically signed by Mata Titus > 09/06/20 0842
[2020-09-06 09:50] LABS: ALBUMIN 1.3 GM/DL (3.2-5.2); ALT/SGPT 21 U/L (12-78); BILIRUBIN,TOTAL 0.4 MG/DL (0.2-1.0); BLOOD UREA NITROGEN 24 MG/DL (7-18); CALCIUM LEVEL 8.1 MG/DL (8.8-10.2); CARBON DIOXIDE LEVEL 31 MEQ/L (21-32); CHLORIDE LEVEL 104 MEQ/L (98-107); CREATININE FOR GFR 0.38 MG/DL (0.70-1.30); GLOMERULAR FILTRATION RATE > 60.0 (>49); GLUCOSE, FASTING 137 MG/DL (70-100); POTASSIUM SERUM 4.5 MEQ/L (3.5-5.1); SODIUM LEVEL 139 MEQ/L (136-145); TOTAL PROTEIN 5.1 GM/DL (6.4-8.2); VANCOMYCIN LEVEL TROUGH 11.1 UG/ML (10.0-20.0)
[2020-09-06] MEDS: SODIUM CHLORIDE NASAL 0.65% SPRAY BTL (OCEAN) SCH ×2 (10:00→20:04)
--- NOTE | 2020-09-06 10:09 | CCN ---
CRITICAL CARE NOTE DATE: 09/06/2020 SUBJECTIVE: The patient was seen and examined this morning during bedside rounds. This morning the patient was noted to have increasing tachypnea and respiratory distress. He did have significant desaturation despite being on Vapotherm at 30 liters a minute and 100% FIO2 with a non-rebreather on top. With minimal exertion and coughing, he does desaturate into the 70s and it will take him quite some time to recover. Patient is reporting more fatigue and feeling tired. He is also reporting more subjective dyspnea as well. With the Morphine he does have some improvement in terms of his dyspnea and with his tachypnea. It does also improve his chest pain. He continues to report difficulty with coughing particularly due to the exertion it requires. OBJECTIVE: VITAL SIGNS: Temperature is 97.3, pulse 104, respirations 31, blood pressure is 139/92, O2 sat 88% on 30 liters a minute at 100% FIO2. INPUT AND OUTPUT: In 1.9 liters, out 1.6, negative positive 245 ml. GENERAL: Patient is a thin male with cachexia who is sitting in bed. He is tachypneic and is using accessory muscles for respiration and does appear to be in some respiratory distress. HEENT: Normocephalic, atraumatic. Pupils react to light bilaterally. Moist mucous membranes are noted. NECK: Supple. Trachea is midline. No palpable cervical adenopathy. CARDIAC: Tachycardic. Regular rate and rhythm. Normal S1 and S2. No appreciable murmurs. PULMONARY: There is a large transmitted chest tube air leak sounds noted on the right. There is very minimal crepitus noted now on the right side of the chest. There is some generalized diminished breath sounds on the left with occasional rhonchi but no significant wheezing. There is continued very brisk air leak noted on the right chest with some fluctuation with suctioning likely due to his significant respiratory effort. ABDOMEN: Soft, nontender and nondistended. No masses palpated. EXTREMITIES: There is no significant lower extremity edema noted bilaterally. LABORATORY DATA: WBC is 17.0, hemoglobin is 12.0, platelets are 69. Chemistries pending. IMAGING: Chest x-ray this morning appears relatively unchanged. There is a small right apical pneumothorax noted and right sided chest tube in place. There is increased interstitial markings noted bilaterally. There is questionable increased density in the right perihilar region today. There is a PICC line in place with the tip in the SVC. ASSESSMENT AND PLAN: Mr. Morse is a 74-year-old male with a past medical history initially of Stage III non-small cell lung cancer on the right status post chemo/RT, history of radiation induced esophagitis and atrial fibrillation who presented with worsening cough and shortness of breath. Patient was found on admission to have right sided pneumothorax as well as empyema with necrotic pneumonia. He also had likely pneumonitis secondary to his immunotherapy. 1. Pneumothorax with empyema on the right with pleural fluid cultures growing multidrug resistant streptococcus, breanne albicans and actinomyces. Will continue patient on broad-spectrum antibiotics with Vancomycin, Zosyn and Micafungin. Patient continues to have a small right apical pneumothorax as well as a very brisk air leak noted with wall suction at -30 cm H2O. Given his continued air leak, we had previously discussed the possibility of pleurodesis although given his poor functional and nutritional status at this time suspect he will have difficulty with surgery and with wound healing postoperatively. Patient may not be a potential surgical candidate but will discuss this further with Cardiothoracic surgery. Continue pain control with Morphine p.r.n. as well as Morphine p.r.n. for his respiratory distress and tachypnea. 2. Pneumonitis likely secondary to his immunotherapy. Continue Solu-Medrol 20 mg q. 8 hours. Would consider higher doses of steroids, however given his fungal pneumonia and empyema as well as being on TPN would be cautious about corticosteroids. 3. Acute hypoxemic respiratory failure secondary to his pneumonia as well as pneumonitis. Patient is on Vapotherm. Will increase as needed to 40 liters a minute and 100% FIO2 with his non-rebreather to help maintain O2 sats above 88%. Will continue incentive spirometry and Acapella device as tolerated. Continue with nebulized bronchodilators with Mucomyst and Albuterol and hypotonic saline for mucous clearance. Patient appears to have some increasing respiratory distress today and there is concern that he will be developing worsening respiratory fatigue. He is a DNR/DNI but will continue to address the goals of care with the patient including the possibility of comfort measures. He does express that he is feeling more tired and fatigued with all of this and him and his daughter have previously discussed in particular quality of life for the patient. 4. Aspiration with a history of dysphagia. Patient is NPO as he had failed a speech and swallow evaluation. He has a PICC line in place and he is receiving TPN for nutritional support with his history of severe protein malnutrition and hypoalbuminemia. 5. Thrombocytopenia. Patient had new onset thrombocytopenia noted yesterday. There was a concern for HIT as he was receiving Heparin products which are on hold. His HIT antibody and serotonin release assay is still pending. He appears to have worsening thrombocytopenia today. There is also a possibility that some of this is from his infection and antibiotics. Will continue TEDs and SCDs for DVT prophylaxis. Code status: DNR/DNI. The patient has a guarded prognosis. We will be discussing with the patient and his daughter today about goals of care and the possibility of comfort measures only given his previous wishes. Total critical care time not including procedures: Approximately 40 minutes. MTDD
[2020-09-06] MEDS: MICAFUNGIN SODIUM 100 MG in D5W MINI-BAG PLUS 100 ML IV SCH (13:09)
[2020-09-06] MEDS ORDERED: VANCOMYCIN HCL 1,000 MG, VIAL MATE ADAPTER 1 EACH in NS 250 ML IV ONE (14:00)
[2020-09-06] MEDS ORDERED: AMINO AC/ELECTROLYTE/DEX/CALC 2,000 ML IV SCH (18:00)
[2020-09-06] MEDS ORDERED: FAT EMULSION IV 20% 500 ML IV SCH (18:00)
--- NOTE | 2020-09-06 18:23 | IPNPDOC ---
Text Note Date of Service The patient was seen on 09/06/20. NOTE Hospitalist Progress Note Subjective: He seems to be worse today. He seems to be struggling more for breath at this time, and is more difficult for him to speak. He is only able to speak in 2-3 word sentences at this time. At the beginning of our interview he was not using any accessory muscles, however after leaning forward and allowing me to listen to his lungs sounds, he became very winded, his saturations dropped to 85, and he was using accessory muscles for the next few minutes. Objective: General: Awake, alert, oriented 3. HEENT: Head normocephalic, atraumatic, sclera are nonicteric. Hearing is grossly intact to conversation. Currently wearing a nonrebreather. Respiratory: Right side has a significant amount of gurgling/crackling and a snapping noise likely due to reexpansion of the lung on inhalation. Many transmitted sounds to the left side due to the presence of the chest tube & right sided pathology, but appears to be clear-alfie with only minimal wheezing. Cardiovascular: Difficult to auscultate due to all the other adventitious noises from his lungs Abdomen: Soft, nontender, nondistended, no hepatosplenomegaly appreciated. Bowel sounds present. Extremities: 2+ pulses in the radial and dorsalis pedis bilaterally. No evidence of clubbing or cyanosis. Assessment: -Right-sided pneumothorax -Empyema -Necrotic pneumonia -Pneumonitis -Acute hypoxemic respiratory failure -COPD -Stage IIIB non-small cell cancer on the right status post chemotherapy/radiation He appears to be deconditioning. Hospice was discussed with him and his family today with the pulmonolgist, and for now the patient wishes to continue treatment. Therefore, continue vancomycin, Zosyn, and micafungin, Solu-Medrol. Pain control with morphine. Vapotherm and nonrebreather. Thrombocytopenia -Large drop in platelets noted, HIT suspected, antibodies have been ordered, no results yet. -heparin & lovenox have been discontinued -Radiation-induced esophagitis -Aspiration and dysphagia -Severe protein calorie malnutrition -Hypoalbuminemia -Cachexia Failed speech swallow evaluation, continue with nothing by mouth diet & TPN -Atrial fibrillation Continue IV Lopressor and digoxin Hold anticoagulation due to right-sided chest tube and high risk of bleeding -Hyperkalemia, resolved -History of alcohol abuse, no signs of trauma -Anxiety, continue home dose of mirtazapine Disposition: Continues to be DNR/DNI. Prognosis continues to be guarded, condition seems to be worsening VS,Shellie, I+O VS, Shellie, I+O Laboratory Tests 09/06/20 05:20 09/06/20 08:55 Vital Signs Date Time Temp Pulse Resp B/P (MAP) Pulse Ox O2 Delivery O2 Flow Rate FiO2 09/06/20 17:48 33 09/06/20 17:15 104 92 HVNI-Vapotherm 40.0 100 09/06/20 15:42 98.3 139/86 (103) I&O- Last 24 Hours up to 6 AM 09/06/20 06:00 Intake Total 1195 ml Output Total 1660 ml Balance -465 ml MARIA ESTHER JACQUES DO September 06, 2020 18:01
[2020-09-07] VITALS (7 sets, daily range): BP systolic 131–159; BP diastolic 87–102
[2020-09-07] MEDS: HumaLOG INSULIN (NovoLOG) PER UNIT SC SCH ×3 (00:18→12:21)
[2020-09-07] MEDS: MORPHINE 4 MG/ML 1ML VIAL/SYRINGE (J2270) IV PRN ×6 (00:19→12:58)
[2020-09-07] MEDS: PIPERACILLIN/TAZOBACTAM SOD 3.375 GM in D5W MINI-BAG PLUS 50 ML IV SCH ×3 (00:19→12:15)
[2020-09-07] MEDS: VANCOMYCIN HCL 1,000 MG, VIAL MATE ADAPTER 1 EACH in NS 250 ML IV SCH ×3 (01:32→16:34)
[2020-09-07] MEDS: ALBUTEROL SULFATE 2.5 MG/0.5 ML INH NEB SOLN NEB SCH ×3 (01:57→13:36)
[2020-09-07] MEDS: SODIUM CHLORIDE HYPERTONIC 3% 15ML NEB SOL INH SCH ×3 (01:58→13:36)
[2020-09-07] MEDS: SODIUM CHLORIDE 0.9% INJ 10 ML SYR IV SCH ×2 (05:04→18:06)
[2020-09-07] MEDS: methylPREDNISolone 40MG 1ML VIAL IV SCH ×2 (05:04→12:14)
[2020-09-07 05:19] LABS: HEMATOCRIT 33.8 % (42.0-52.0); HEMOGLOBIN 11.1 g/dl (13.5-17.5); MEAN CORPUSCULAR HEMOGLOBIN 31.6 pg (27.0-33.0); MEAN CORPUSCULAR HGB CONC 32.8 g/dl (32.0-36.5); MEAN CORPUSCULAR VOLUME 96.3 fl (80.0-96.0); RED BLOOD COUNT 3.51 10^6/uL (4.30-6.10)
[2020-09-07 05:21] LABS: PLATELET COUNT, AUTOMATED 56 10^3/uL (150-450)
[2020-09-07 05:35] LABS: LYMPHOCYTES 2 % (16-44); MONOCYTES 2 % (0-5); NEUTROPHILS 95 % (28-66)
[2020-09-07 05:36] LABS: PLATELET ESTIMATE DECREASED (NORMAL)
[2020-09-07 05:57] LABS: ALBUMIN 1.3 GM/DL (3.2-5.2); ALT/SGPT 20 U/L (12-78); BILIRUBIN,TOTAL 0.5 MG/DL (0.2-1.0); BLOOD UREA NITROGEN 19 MG/DL (7-18); CALCIUM LEVEL 7.8 MG/DL (8.8-10.2); CARBON DIOXIDE LEVEL 31 MEQ/L (21-32); CHLORIDE LEVEL 101 MEQ/L (98-107); CREATININE FOR GFR 0.32 MG/DL (0.70-1.30); GLOMERULAR FILTRATION RATE > 60.0 (>49); GLUCOSE, FASTING 122 MG/DL (70-100); POTASSIUM SERUM 4.2 MEQ/L (3.5-5.1); SODIUM LEVEL 135 MEQ/L (136-145)
[2020-09-07] MEDS: ACETYLCYSTEINE 20% 4 ML VIAL (200MG/ML) INH SCH (07:12)
[2020-09-07] MEDS: SYMBICORT 160/4.5MCG INHALER 6GM INH SCH (07:13)
[2020-09-07] MEDS: TIOTROPIUM INHALER/CAPSULE (SPIRIVA) INH SCH (07:13)
[2020-09-07] MEDS: MOM 30ML SUSPENSION UDC PO SCH (08:04)
[2020-09-07] MEDS: PANTOPRAZOLE 40MG VIAL (C9113 PER 1) IV SCH (08:55)
[2020-09-07] MEDS: DIGOXIN INJ 0.5 MG/2 ML AMP (J1160) IV SCH (08:56)
[2020-09-07] MEDS: SODIUM CHLORIDE NASAL 0.65% SPRAY BTL (OCEAN) SCH (08:59)
--- NOTE | 2020-09-07 09:09 | REP ---
INDICATION: chest tube. COMPARISON: 09/06/2020 at 7:18 a.m. TECHNIQUE: Portable FINDINGS: The technique utilized in obtaining the radiograph has magnified the cardiac silhouette and accentuated the interstitial markings. The cardiomediastinal silhouette is unchanged. Right-sided thoracotomy tube status quo. No change in the lung majano. The PICC line catheter is unchanged. No change in the osseous structures. IMPRESSION: No change from yesterday <Electronically signed by Floyd Headley > 09/07/20 0905
[2020-09-07] MEDS: MICAFUNGIN SODIUM 100 MG in D5W MINI-BAG PLUS 100 ML IV SCH (13:51)
[2020-09-07] MEDS: MORPHINE 10 MG/ML 1ML VIAL (J2270) IV PRN ×3 (15:29→23:17)
--- NOTE | 2020-09-07 16:56 | CCN ---
CRITICAL CARE NOTE DATE: 09/07/2020 SUBJECTIVE: Patient was seen and examined this morning during bedside rounds. Overnight the patient did not have any acute events except for continued episodes of desaturation with minimal movement or activity. He did have a Gomes catheter placed the other day as he was desaturating with just using the urinal. Patient does appear to have more tachypnea and respiratory distress today. He is having difficulty even speaking short sentences or words due to his significant dyspnea. He is also taking longer in terms of recovering when he does have desaturations. He is on Vapotherm at 40 liters a minute and 100% FiO2 with a nonrebreather on top, and his O2 sats are mostly in the 80s, at times very low 90s. With minimal exertion, he does desaturate into the 70s or lower. Patient does appear to be using more accessory muscles for respiration. He has been receiving morphine p.r.n. for his dyspnea and chest pain. He denies any pain currently. OBJECTIVE: VITALS: Temperature 98.6, pulse 92, respirations 26, blood pressure 131/87, O2 sat 89% on 40 liters a minute and 100% FiO2. Ins 1.4 liters, out 2 liters, net negative 590 mL. GENERAL: Patient is a thin male with cachexia who is sitting in bed tachypneic and is using accessory muscles of respiration. He is in some degree of respiratory distress and is unable to speak in complete sentences or short phrases. HEENT: Normocephalic/atraumatic. Pupils react to light bilaterally. There are some dry mucous membranes noted. NECK: Supple. Trachea is midline. No palpable cervical adenopathy. CARDIAC: Tachycardic, regular rate and rhythm. Normal S1 and S2. Unable to clearly appreciate murmurs. PULMONARY: There are transmitted chest tube air leak sounds noted that are loud on the right. There is no appreciable crepitus on the right side chest. There is a right anterior chest tube in place with a very large air leak noted on the Pleur-Evac. There is occasional rhonchi on the left side with diminished breath sounds but no significant wheezing. ABDOMEN: Soft, nontender, nondistended. No masses palpated. EXTREMITIES: There is no significant lower extremity edema noted bilaterally. LABORATORY DATA: WBC 22, hemoglobin 11.1, platelets 56. Chemistries: Sodium 135, potassium 4.2, chloride 101, bicarb 31, BUN 19, creatinine 0.32, glucose 122, albumin 1.3. Chest x-ray this morning appears without significant change. There is a right apical pneumothorax noted again, questionably mildly larger in size. There is a right-sided chest tube in place. There are increased interstitial markings noted bilaterally. There is a PICC line in place with the tip in the SVC. There is suspected pneumothorax posteriorly which is unchanged. ASSESSMENT/PLAN: Mr. Morse is a 74-year-old male with a past medical history of stage 3 nonsmall cell lung cancer on the right status post chemo/RT, history of radiation induced esophagitis, and atrial fibrillation who presented with worsening cough and shortness of breath. Patient was found on admission to have right-sided pneumothorax as well as empyema with necrotic pneumonia. He also had pneumonitis likely secondary to his immunotherapy. 1. Pneumothorax with empyema on the right with pleural fluid cultures growing multidrug resistant Streptococcus, Yoanna albicans, Actinomyces, and Porphyromonas asaccharolytica. a. Patient is on broad spectrum antibiotics still with vancomycin, Zosyn, and micafungin given his pleural fluid cultures and sensitivities. b. Patient continues to have very large air leak noted on the right with wall suction at -30 cm H2O. He does continue to have evidence of a right apical pneumothorax and suspected posterior pneumothorax as well. We did discuss the consideration of placing another chest tube in to help with his air leak and the pneumothorax although given the extent of the disease in his lungs he may not have significant improvement in terms of his dyspnea and his oxygenation. Given his severe hypoxic respiratory failure and functional status at this time, patient would be a poor surgical candidate. With his poor nutritional status as well, he would likely have difficulty with wound healing postoperatively. 2. Acute hypoxemic respiratory failure secondary to pneumonia as well as his pneumonitis. Patient is on Vapotherm still at maximal settings at 40 liters per minute and 100% FiO2 with the addition of a nonrebreather to help maintain his O2 sats above 88%. a. Patient is unable to tolerate incentive spirometer Acapella given his severe fatigue and respiratory distress. Suspect he is having a worsening hypoxia due to worsening respiratory fatigue at this point. b. Will continue patient with morphine and will increase his morphine given his dyspnea and work of breathing. We previously had discussed with the patient and his children about goals of care, and there had been consideration for hospice. He is awaiting a deposition on Monday before proceeding with comfort measures only. However, with his worsening respiratory status, will continue to readdress with the patient's family as well as with the patient about his ongoing goals of care. 3. 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 a. Continue Solu-Medrol 20 mg q.8 hours. 4. History of aspiration. Patient is n.p.o. as he failed a speech and swallow evaluation. Given his severe respiratory distress, he is also unable to eat at this time given his work of breathing. a. Patient has a PICC line in place, and he is continuing to receive TPN for nutritional support given his protein malnutrition and hypoalbuminemia. His albumin has been increasing slightly. 5. Thrombocytopenia. Patient has worsening thrombocytopenia. There is concern for possible HIT, and his heparin products are on hold currently. His HIT antibody and serotonin release assay is still pending. a. Will continue to monitor his platelets and transfuse as needed. He does not clinically appear to have any active signs of bleeding. b. Continue TEDS and SCDs for DVT prophylaxis. CODE STATUS: DNR/DNI. Patient's prognosis is extremely guarded. 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 MTDD
[2020-09-07] MEDS ORDERED: MULTIVITAMIN -ADULT INJECTION 10 ML, CR/CU/SE/MN/ZN INJ 1 ML in AMINO AC/ELECTROLYTE/DE... IV SCH (18:00)
[2020-09-07] MEDS ORDERED: SCOPOLAMINE 1MG TRANSDERMAL PATCH TOP PRN (18:00)
[2020-09-07] MEDS ORDERED: HumaLOG INSULIN (NovoLOG) PER UNIT SC SCH (18:00)
[2020-09-07] MEDS ORDERED: MORPHINE 10MG/0.5ML ORAL CONCENTRATE SOLUTION U/D SL PRN (18:00)
[2020-09-07] MEDS ORDERED: ATROPINE SULFATE 1% OP SOLN 2 ML BTL SL PRN (18:00)
[2020-09-07] MEDS ORDERED: LORazepam 2 MG/ML VIAL IV PRN (18:00)
[2020-09-07] MEDS ORDERED: FAT EMULSION IV 20% 500 ML IV SCH (18:00)
[2020-09-07] MEDS ORDERED: FLEET ENEMA PR PRN (18:00)
[2020-09-07] MEDS ORDERED: LORazepam 2 MG/ML VIAL As Ordered ONE (18:56)
--- NOTE | 2020-09-07 18:57 | IPNPDOC ---
Text Note Date of Service The patient was seen on 09/07/20. NOTE Hospitalist Progress Note Subjective: The patient has been declining severely over the past few days. I was notified by the nurse that the patient and his family have now decided to switch him over to comfort measures only. Their wishes will be honored, and the appropriate orders will be put into the computer. Objective: Physical examination was not performed at this time Assessment: -Right-sided pneumothorax -Empyema -Necrotic pneumonia -Pneumonitis -Acute hypoxemic respiratory failure -COPD -Stage IIIB non-small cell cancer on the right status post chemotherapy/radia tion -Thrombocytopenia -Radiation-induced esophagitis -Aspiration and dysphagia -Severe protein calorie malnutrition -Hypoalbuminemia -Cachexia -Atrial fibrillation -Hyperkalemia -History of alcohol abuse -Anxiety Disposition: The patient and his family have decided to discontinue any additional aggressive interventions. 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
[2020-09-07] MEDS: LORazepam 2 MG/ML VIAL IV PRN (21:14)
[2020-09-08] MEDS: LORazepam 2 MG/ML VIAL IV PRN ×2 (00:33→04:10)
[2020-09-08] MEDS: MORPHINE 4 MG/ML 1ML VIAL/SYRINGE (J2270) IV PRN ×2 (00:34→04:10)
[2020-09-08] MEDS: MORPHINE 10 MG/ML 1ML VIAL (J2270) IV PRN (02:24)
[2020-09-11 14:09] LABS: HEPARIN INDUCED PLATELET ABY 0.096 OD (0.000-0.400); UNFRACTIONATED HEPARIN HI DOSE <1 % (0-20); UNFRACTIONATED HEPARIN LOW DOS <1 % (0-20)
== END 2020-09-08 06:15 | disposition expired | DRG 177 ==
LOC: M ED 20:44 → M ICU 23:16 → ENRESERV 23:26 → M PCU 09-07 20:55
PROVIDERS: ADMIT Internal Medicine Pulmonary Disease; ATTEND Internal Medicine Pulmonary Disease
PROC: 0W9930Z Drainage of Right Pleural Cavity with Drainage Device, Percutaneous Approach (ICD-10-PCS; principal; 2020-08-29)
PROC: 02HV33Z Insertion of Infusion Device into Superior Vena Cava, Percutaneous Approach (ICD-10-PCS; 2020-09-03)
DX: J85.1 Abscess of lung with pneumonia (principal); E43 Unspecified severe protein-calorie malnutrition; J86.0 Pyothorax with fistula; J96.01 Acute respiratory failure with hypoxia; J93.83 Other pneumothorax; C34.90 Malignant neoplasm of unspecified part of unspecified bronchus or lung; E87.1 Hypo-osmolality and hyponatremia; J44.0 Chronic obstructive pulmonary disease with (acute) lower respiratory infection; J90 Pleural effusion, not elsewhere classified; R64 Cachexia; J70.1 Chronic and other pulmonary manifestations due to radiation; J85.0 Gangrene and necrosis of lung; K20.80 Other esophagitis without bleeding; F10.10 Alcohol abuse, uncomplicated; E87.5 Hyperkalemia; I27.20 Pulmonary hypertension, unspecified; J70.2 Acute drug-induced interstitial lung disorders; D75.82 Heparin induced thrombocytopenia (HIT); E88.09 Other disorders of plasma-protein metabolism, not elsewhere classified; F41.9 Anxiety disorder, unspecified; Z92.3 Personal history of irradiation; Z92.21 Personal history of antineoplastic chemotherapy; Z66 Do not resuscitate; I48.91 Unspecified atrial fibrillation; Z87.891 Personal history of nicotine dependence; Z51.5 Encounter for palliative care; D69.6 Thrombocytopenia, unspecified